=== PATIENT | female | born 1985 | race Caucasian/White ===

== ENCOUNTER 2020-07-20 10:43 | Emergency (ER) | payer OTHER, SELFPAY ==
[2020-07-20 11:06] VITALS: BP 126/80; PULSE 84; RESP 16; TEMP 36.7; O2SAT 99; BMI 33.0
--- NOTE | 2020-07-20 11:23 | CT_ITS ---
EXAMINATION: CT abdomen pelvis wo con CLINICAL INFORMATION: Reason for Exam abd pain, ?? Diverticulitis COMPARISON: No prior CT available for comparison. TECHNIQUE: Multidetector volumetric imaging was performed from the superior aspect of the liver through the pubic symphysis 100 mL of Omnipaque 300 injected Sagittal and coronal reformatted images were obtained on the technologist's workstation. This CT examination was performed using dose optimization techniques as appropriate, variously including the following: *Automated exposure control *Adjustment of mA and/or kV according to patient size (this includes techniques or standardized protocols for targeted exams where dose is matched to indication/reason for exam; i.e. extremities or head) *Use of iterative reconstruction technique DLP: 1715 mGy-cm FINDINGS: LOWER THORAX: Included lung bases are clear. HEPATOBILIARY: No focal hepatic lesions. No biliary ductal dilatation. GALLBLADDER: Gallbladder unremarkable. SPLEEN: Spleen is normal in size. PANCREAS: No focal mass or ductal dilatation. STOMACH AND GASTROINTESTINAL TRACT: Stomach is grossly unremarkable. There is no bowel distention or thickening. Appendix is nondilated, there is a small appendicolith, there is air within the appendix lumen, no CT evidence of appendicitis. ADRENALS: No adrenal nodules. KIDNEYS/URETERS: There are bilateral tiny nonobstructing kidney stones 3 on the right forearm the left ranging in size from 1 mm to 3 mm. There is no hydronephrosis. Perinephric fat are clear. URINARY BLADDER: Partially decompressed. PELVIC VISCERA: There is a right sided adnexal cyst measure up to 2.5 cm most likely of right ovarian origin. PERITONEUM: No free air or fluid. LYMPH NODES: No lymphadenopathy. VASCULAR:Abdominal aorta normal in size, no aneurysm found. BONES, ABDOMINAL WALL AND SOFT TISSUES: Age-appropriate changes of the spine and skeletal system, no destructive osteolytic or osteosclerotic bone lesion found sclerotic density in the left femoral head probably bone islands. Mild degenerative changes of SI joints. CT/CT abdomen pelvis wo con IMPRESSION: 1. No CT evidence of appendicitis or diverticulitis. 2. There are bilateral multiple tiny nonobstructing kidney stones. No evidence of renal obstruction or hydronephrosis. 3. There is 2.4 cm cystic structure in the right adnexa most likely of right ovarian origin. This can be further investigated with pelvic ultrasound if clinically indicated. 4. No CT evidence of bowel obstruction, no free air or fluid, no adenopathy.
--- NOTE | 2020-07-20 11:24 | ED.ABDPAIN ---
HPI - Abdominal Pain General Chief Complaint: Abdominal Pain Stated Complaint: ABD PAIN Time Seen by Provider: 07/20/20 11:23 Source: patient Mode of arrival: ambulatory Limitations: no limitations History of Present Illness HPI narrative: This is a 34-year-old female otherwise healthy presented with 1 week of left-sided abdominal pain, nausea, vomiting, and diarrhea with occasional blood streaks in the stool. Patient stated that abdominal pain started a week ago, described it as cramps, localized to her left side of her abdomen, no radiation, pain is not worsening by anything including foods, patient is also not improved by any thing. Pain is associated with nausea, vomiting, and diarrhea with occasional blood streaks in the stool. Patient was seen at an urgent care earlier this week and diagnosis of diverticulitis was presumed and patient was started on amoxicillin for 10 days patient feeling slight improvement with the antibiotic. Related Data Home Medications Medication Instructions Recorded Confirmed No Known Home Meds 07/14/20 07/14/20 Previous Rx's Medication Instructions Recorded amoxicillin 875 mg-potassium 1 tab PO BID #20 tab 07/14/20 clavulanate 125 mg tablet ondansetron HCl 8 mg tablet 8 mg PO Q8H PRN #30 tab 07/14/20 oxycodone-acetaminophen 10 mg-325 1 tab PO Q6H PRN #10 tab 07/14/20 mg tablet Allergies Allergy/AdvReac Type Severity Reaction Status Date / Time No Known Allergies Allergy Unverified 05/22/20 19:11 [No Known Allergies*] Review of Systems Review of Systems All other systems are reviewed and are negative Constitutional: Reports as per HPI and Reports no additional constitutional complaints Eyes: Reports as per HPI and Reports no additional eye complaints Reports system reviewed and no additional complaints, except as documented Cardiovascular: Reports as per HPI and Reports no additional cardiovascular complaints Respiratory: Reports as per HPI and Reports no additional respiratory complaints Gastrointestinal: Reports as per HPI and Reports no additional gastrointestinal complaints Genitourinary: Reports no additional female genitourinary complaints Musculoskeletal: Reports no additional musculoskeletal complaints Skin/Breast: Reports system reviewed and no additional complaints, except as docu Psychiatric: Reports no additional psychiatric complaints Endocrine: Reports no additional endocrine complaints Hematologic/Lymphatic: Reports no additional hematologic/lymphatic complaints Allergic/Immunologic: Reports no additional allergic/immunologic complaints Reports system reviewed and no additional complaints, except as documented and Reports Abnormal speech present Physical Exam Vital Signs: Vital Signs: Last Vital Signs Temp 98.0 F 07/20/20 11:06 Pulse 84 07/20/20 11:06 Resp 16 07/20/20 13:45 BP 126/80 07/20/20 11:06 Pulse Ox 99 07/20/20 11:06 Body Mass Index 33.0 Vital signs have been reviewed as normal and appeared to be correct. Blood pressure normal. Heart rate normal. Respiration rate normal. Temperature normal. Oxygen saturation normal. Appearance: Alert. Oriented X3. No acute distress. Head: Normal external exam. Normocephalic. Atraumatic. No Swain signs noted. No raccoon eyes noted Eyes: PERRLA. EOMI. Conjunctiva and sclera normal. Eyelids normal. ENT: EAC normal. TM's Normal. Pharynx normal. Uvula midline. Moist mucous membranes. No trismus noted. No drooling noted. No muffled voice noted. Neck: Normal inspection. Neck supple. FROM. No adenopathy. Thyroid Normal. No meningeal signs. No neck mass noted. CVS: Normal heart rate and rhythm. Heart sound normal. No murmurs noted. Pulses normal throughout. Respiratory: No respiratory distress. Painless inspiration. Breath sounds normal. No wheezes/rales/rhonchi noted. Chest nontender. No accessory muscle usage noted or decreased air movement noted. Abdomen: Left abdominal tenderness, no rebound tenderness, no guarding, Bowel sounds normal in all 4 quadrants. No distention noted. No organomegaly noted. No visible injury noted. Back: No CVA tenderness. Full range of motion noted. Skin: Skin warm and dry. Normal skin color. Normal skin turgor. No rashes/lesions/lacerations noted. Extremities: No lower extremity edema. Extremities exhibit normal range of motion. Extremities nontender. Neuro: Oriented X 3. No motor deficit. No sensory deficit. Reflexes normal. MDM - Abdominal Pain MDM Narrative Medical decision making narrative: Assessment and plan. 34-year-old female presented with few days of left-sided abdominal pain, patient had previous evaluation at the urgent care and prescribed amoxicillin for presumed diverticulitis, patient also been having irregular menstrual period, patient appear comfortable with no apparent distress in the emergency department, patient had a CT of the abdomen pelvis which showed no evidence of acute diverticulitis or any other pathology intra-abdominally, patient had a right ovarian adnexal mass. 1. As recommended to the patient she has a normal white count and normal CT scan to discontinue amoxicillin that was prescribed for presumed diverticulitis. 2. To get a referral from PCP for a GI follow-up if the pain persist. 3. Follow-up with OBGYN for irregular. It is and right adnexal mass. It Lab Data Attestation: I reviewed the patient's lab results. Result diagrams: 07/20/20 11:59 07/20/20 11:59 Labs: Lab Results 07/20/20 07/20/20 07/20/20 Range/Units 11:59 11:59 11:59 WBC 9.5 (4.8-10.8) X10*3/uL RBC 4.62 (4.20-5.50) X10*6/uL Hgb 13.5 (12.0-16.0) g/dl Hct 42.4 (37-47) % MCV 91.8 (80-98) fL MCH 29.2 (27.0-33.0) pg MCHC 31.8 (31.0-35.0) g/dl RDW 11.8 (11.0-16.0) % Plt Count 224 (160-400) X10*3/uL MPV 10.1 (9.4-12.3) fL Immature Gran % (Auto) 0.2 (0.0-0.4) % Neut % (Auto) 65.5 (45-73) % Lymph % (Auto) 22.0 (20-40) % [place] % (Auto) 6.3 (2-11) % Eos % (Auto) 5.4 H (0-4) % Baso % (Auto) 0.6 (0-2) % Lymph # (Auto) 2.1 (1.2-4.9) X10*3/uL [place] # (Auto) 0.6 (0.1-1.2) X10*3/uL Eos # (Auto) 0.5 H (0.0-0.4) X10*3/uL Baso # (Auto) 0.1 (0.0-0.2) X10*3/uL Abs Immat Gran (auto) 0.02 (0.00-0.03) X10*3/uL Absolute Neuts (auto) 6.2 (2.0-8.3) X10*3/uL Absolute Nucleated RBC 0.000 (0.0-0.012) X10*3/uL Nucleated RBC % (auto) 0.0 (0.0-0.2) /100WBC Sodium 139 (135-145) mmol/L Potassium 4.7 (3.3-5.1) mmol/l Chloride 103 (96-108) mmol/L Carbon Dioxide 28 (22-29) mmol/L Anion Gap 13 (12-20) BUN 13 (9-16) mg/dL Creatinine 0.82 (0.5-1.4) mg/dL Estim Creat Clear Calc 93.9 Estimated GFR > 60 Random Glucose 90 (60-115) mg/dL Calcium 9.2 (8.4-10.2) mg/dL Total Bilirubin 0.8 (0.0-1.0) mg/dL Direct Bilirubin 0.2 (0.0-0.5) mg/dL AST 26 (5-31) U/L ALT 16 (0-31) U/L Alkaline Phosphatase 80 (39-117) U/L Total Protein 7.9 (6.5-8.0) g/dL Albumin 4.2 (3.5-5.0) g/dL Lipase 33 (8-78) U/L Urine Color YELLOW Urine Appearance CLEAR Urine pH 6.0 (5.0-8.0) Ur Specific [place] 1.025 (1.005-1.025) Urine Protein NEG (NEG-TRACE) MG/DL Urine Glucose (UA) NEG (NEG) MG/DL Urine Ketones NEG (NEG) MG/DL Urine Blood 3+ H (NEG) Urine Nitrite NEG (NEG) Ur Leukocyte Esterase NEG (NEG) Urine RBC 10-14 H (0) /HPF Urine WBC 0 (0-4) /HPF Ur Squamous Epith Cells 2+ /LPF Urine Bacteria NONE /LPF Urine Test NEGATIVE (NEGATIVE) Imaging Data CT scan - abdomen: Radiologist's impression: . No CT evidence of appendicitis or diverticulitis. 2. There are bilateral multiple tiny nonobstructing kidney stones. No evidence of renal obstruction or hydronephrosis. 3. There is 2.4 cm cystic structure in the right adnexa most likely of right ovarian origin. This can be further investigated with pelvic ultrasound if clinically indicated. 4. No CT evidence of bowel obstruction, no free air or fluid, no adenopathy. Discharge Plan Discharge Clinical Impression: Adnexal mass Abdominal pain Qualifiers: Abdominal location: left lower quadrant Qualified Code(s): R10.32 - Left lower quadrant pain Patient Disposition: Home, Self-Care Instructions: Abdominal Pain (ED) Prescriptions: No Action No Known Home Meds RF: 0 amoxicillin-pot clavulanate [Augmentin] 875-125 mg tablet 1 tab PO BID Qty: 20 RF: 0 ondansetron HCl 8 mg tablet 8 mg PO Q8H PRN (Reason: nausea and vomiting) Qty: 30 RF: 1 oxycodone-acetaminophen [Percocet] 10-325 mg tablet 1 tab PO Q6H PRN (Reason: pain) Qty: 10 RF: 0 Referrals: Physician,Outside [Primary Care Provider] - 2 days (Need to follow-up with your OBGYN, and get a referral to see outpatient housing coordinator.) [facility] Social History Social History Alcohol intake: never Smoked in Last 30 Days: No Use of substances other than those prescribed or required for medical reasons: No Advance Directives: No Advance Directives Information Provided: Yes
[2020-07-20 12:07] LABS: Basophils Absolute Auto 0.1 X10*3/uL (0.0-0.2); Basophils Percent Auto 0.6 % (0-2); Eosinophils Absolute Auto 0.5 X10*3/uL (0.0-0.4); Eosinophils Percent Auto 5.4 % (0-4); Hematocrit 42.4 % (37-47); Hemoglobin 13.5 g/dl (12.0-16.0); Imm Gran Abs Auto 0.02 X10*3/uL (0.00-0.03); Imm Gran Pct Auto 0.2 % (0.0-0.4); Lymphocytes Absolute Auto 2.1 X10*3/uL (1.2-4.9); MANUAL DIFF FLAG NO; Mean Corpuscular HGB Conc 31.8 g/dl (31.0-35.0); Mean Corpuscular Hemoglobin 29.2 pg (27.0-33.0); Mean Corpuscular Volume 91.8 fL (80-98); Mean Platelet Volume 10.1 fL (9.4-12.3); Monocytes Absolute Auto 0.6 X10*3/uL (0.1-1.2); Monocytes Percent Auto 6.3 % (2-11); Neutrophils Absolute Auto 6.2 X10*3/uL (2.0-8.3); Neutrophils Percent Auto 65.5 % (45-73); Platelet Count 224 X10*3/uL (160-400); Red Blood Count 4.62 X10*6/uL (4.20-5.50); Red Cell Distribution Width 11.8 % (11.0-16.0); White Blood Count 9.5 X10*3/uL (4.8-10.8)
[2020-07-20 12:10] LABS: Glucose Urine UA NEG (NEG); Leukocyte Esterase Urine NEG (NEG); Nitrite Urine NEG (NEG); Specific Gravity - Urine 1.025 (1.005-1.025); Urine Blood 3+ (NEG); Urine Ketones NEG (NEG); Urine Protein NEG (NEG-TRACE)
[2020-07-20 12:14] LABS: Appearance Urine CLEAR; Color Urine YELLOW; UPreg QC Valid YES; Urine Pregnancy NEGATIVE (NEGATIVE)
[2020-07-20] MEDS: 0.9 % Sodium Chloride 500 ML 1000 ML IV (12:17)
[2020-07-20] MEDS: Ketorolac Tromethamine 15 MG/ML VIAL IV (12:18)
[2020-07-20 12:33] LABS: WBC Urine 0 /HPF (0-4)
[2020-07-20 12:34] LABS: Squamous Epithelial Cell Urine 2+ /LPF
[2020-07-20 12:42] LABS: Alanine Aminotransferase 16 U/L (0-31); Albumin Level 4.2 g/dL (3.5-5.0); Alkaline Phosphatase 80 U/L (39-117); Anion Gap 13 (12-20); Aspartate Amino Transferase 26 U/L (5-31); Bilirubin Direct 0.2 mg/dL (0.0-0.5); Bilirubin Total 0.8 mg/dL (0.0-1.0); Blood Urea Nitrogen 13 mg/dL (9-16); Calcium 9.2 mg/dL (8.4-10.2); Carbon Dioxide 28 mmol/L (22-29); Chloride 103 mmol/L (96-108); Creatinine Clr Calc Pharmacy 93.9; Estimated Glomerular Filt Rate > 60; Glucose Random 90 mg/dL (60-115); Lipase 33 U/L (8-78); Potassium 4.7 mmol/l (3.3-5.1); Sodium 139 mmol/L (135-145); Total Protein 7.9 g/dL (6.5-8.0)
[2020-07-20 13:45] VITALS: RESP 16
== END 2020-07-20 14:31 | disposition home or self-care (01) ==
PROVIDERS: Emergency Provider Emergency Medicine
DX: R10.32 Left lower quadrant pain (principal); Z79.899 Other long term (current) drug therapy
CPT/HCPCS: 36415; 74176; 80048; 80076; 81001; 81025; 83690; 85025; 96374; 99284; J1885

== ENCOUNTER 2021-03-10 12:04 | Emergency (ER) | payer OTHER, SELFPAY ==
--- NOTE | ~2021-03-10 | XR_ITS ---
EXAMINATION: XR CHEST CLINICAL INFORMATION: Cough COMPARISON: None TECHNIQUE: 2 views of the chest were obtained. FINDINGS: No significant abnormality is noted involving the heart, lungs, mediastinum, bony thorax or soft tissues. XR/XR chest 2V IMPRESSION: Unremarkable examination.
[2021-03-10 13:19] VITALS: BP 123/80; PULSE 79; RESP 19; TEMP 36.6; O2SAT 99; BMI 32.3
--- NOTE | 2021-03-10 16:36 | ED_ITS ---
HPI - URI/Sore Throat General Chief Complaint: Upper Respiratory Symptoms Stated Complaint: cough, sob Time Seen by Provider: 03/10/21 16:36 Source: patient Mode of arrival: ambulatory Limitations: no limitations History of Present Illness HPI Narrative: 35 y/o female with history of diverticulitis, asthma, hx COVID-19 two months ago who presents to the ED from home c/o cough and fever for the last 2 days. She reports SOB and back pain as well. She has a productive cough of green phlegm. She has seasonal allergies and has been taking her Zyrtec and nasal spray. She has been using her nebulizer and inhalers for her asthma but still feels SOB at times. She has body aches and muscle pains. No known sick contacts. No chest pain. Tmax 100.1 at home. VS are normal on arrival and she appears well. MD elicited complaint: fever and cough Onset (ago): day(s) (2) Consistency: intermittent Severity: moderate Description of mucous: green Able to tolerate fluids by mouth: Yes Exacerbating factors: nothing Relieving factors: OTC cold medicine, cough suppressant and rest Associated symptoms: fever, myalgias, headache, rhinorrhea, nasal congestion, sore throat, cough, shortness of breath and nausea Treatments prior to arrival: none Related Data Previous Rx's Medication Instructions Recorded amoxicillin 875 mg-potassium 1 tab PO BID #20 tab 07/14/20 clavulanate 125 mg tablet ondansetron HCl 8 mg tablet 8 mg PO Q8H PRN #30 tab 07/14/20 oxycodone-acetaminophen 10 mg-325 1 tab PO Q6H PRN #10 tab 07/14/20 mg tablet amoxicillin-pot clavulanate 1 tab PO BID #14 tab 03/10/21 [Augmentin] benzonatate [Tessalon Perles] 100 mg PO TID PRN #14 cap 03/10/21 ondansetron 4 mg PO Q8H PRN #7 tab 03/10/21 prednisone 40 mg PO DAILY #10 tab 03/10/21 Allergies Allergy/AdvReac Type Severity Reaction Status Date / Time No Known Allergies Allergy Unverified 05/22/20 19:11 [No Known Allergies*] Review of Systems Review of Systems: Constitutional: + Fever, No Chills ENT/Mouth: + sore throat, + Rhinorrhea, No Swallowing Difficulty Eyes: No Eye Pain, No Swelling, No Redness Cardiovascular: No Chest Pain, + SOB, No Orthopnea, No Edema Respiratory: + Cough, + Sputum, No Wheezing, + dyspnea Gastrointestinal: + Nausea, No Vomiting, No Diarrhea, No abdominal Pain, No Hematochezia, No Melena Genitourinary: No Dysuria, No Urinary Frequency, No Hematuria Musculoskeletal: No joint pain, +Myalgias Skin: No Skin Lesions, No rash Neuro: + Weakness, No Numbness, No Dizziness, + Headache Psych: No Anxiety/Panic, No Depression Heme/Lymph: No Bruising, No Lymphadenopathy Endocrine: No Polyuria, No Polydipsia [facility] Past Medical History Attestation statement: The following information was validated with the patient. Medical History Asthma Lung granuloma Social History Social History Alcohol intake: never Patient Tobacco Use Status: Never used Tobacco Use of substances other than those prescribed or required for medical reasons: No Advance Directives: No Advance Directives Information Provided: No Patient : No Physical Exam Vital Signs: Vital Signs: Last Vital Signs Temp 98.3 F 03/10/21 16:39 Pulse 85 03/10/21 16:39 Resp 18 03/10/21 16:39 BP 116/81 03/10/21 16:39 Pulse Ox 100 03/10/21 16:39 Body Mass Index 32.3 Appearance: Alert. Oriented X3. No acute distress. Eyes: Pupils equal, round and reactive to light. ENT: Pharynx normal. Neck: Normal inspection. Neck supple. CVS: Normal heart rate and rhythm. Pulses normal. Respiratory: No respiratory distress. Breath sounds normal. Speaks in complete sentences Abdomen: Soft and nontender. +BS x4 Skin: Skin warm and dry. Normal skin color. Normal skin turgor. No rashes. Extremities: No lower extremity edema. Neuro: Oriented X 3. No motor deficit. No sensory deficit. Ambulatory Course Course Course Narrative: 35 y/o female with history of asthma, hx COVID-19 two months ago presenting with SOB, fever, and productive cough of green phlegm. Her VS are normal on arrival and her examination is benign. No wheezing or SOB. PERC negative. Most likely acute viral syndrome, but will get CXR to r/o PNA and basic lab workup. Reevaluation(s) Reevaluation #1: CXR is normal. No infiltrate. PO prednisone and Augmentin ordered for possible acute bronchitis. Reevaluation #2: Labs are unremarkable. SpO2 remains 100%. She is stable for discharge with treatment for bronchitis. Encouraged to f/u with PCP or return to ER if symptoms worsen. MDM - URI/Sore Throat Lab Data Result diagrams: 03/10/21 16:59 03/10/21 16:58 Labs: Lab Results 03/10/21 03/10/21 03/10/21 Range/Units 16:58 16:59 16:59 WBC 9.5 (4.8-10.8) X10*3/uL RBC 4.78 (4.20-5.50) X10*6/uL Hgb 14.0 (12.0-16.0) g/dl Hct 42.5 (37-47) % MCV 88.9 (80-98) fL MCH 29.3 (27.0-33.0) pg MCHC 32.9 (31.0-35.0) g/dl RDW 12.0 (11.0-16.0) % Plt Count 255 (160-400) X10*3/uL MPV 10.2 (9.4-12.3) fL Immature Gran % (Auto) 0.2 (0.0-0.4) % Neut % (Auto) 72.2 (45-73) % Lymph % (Auto) 15.9 L (20-40) % [place] % (Auto) 7.4 (2-11) % Eos % (Auto) 3.8 (0-4) % Baso % (Auto) 0.5 (0-2) % Lymph # (Auto) 1.5 (1.2-4.9) X10*3/uL [place] # (Auto) 0.7 (0.1-1.2) X10*3/uL Eos # (Auto) 0.4 (0.0-0.4) X10*3/uL Baso # (Auto) 0.1 (0.0-0.2) X10*3/uL Abs Immat Gran (auto) 0.02 (0.00-0.03) X10*3/uL Absolute Neuts (auto) 6.9 (2.0-8.3) X10*3/uL Absolute Nucleated RBC 0.000 (0.0-0.012) X10*3/uL Nucleated RBC % (auto) 0.0 (0.0-0.2) /100WBC Sodium 141 (135-145) mmol/L Potassium 4.1 (3.3-5.1) mmol/L Chloride 107 (96-108) mmol/L Carbon Dioxide 23 (22-29) mmol/L Anion Gap 15 (12-20) BUN 10 (9-16) mg/dL Creatinine 0.79 (0.5-1.4) mg/dL Estim Creat Clear Calc 95.5 Estimated GFR > 60 Random Glucose 97 (60-115) mg/dL Calcium 10.3 H D (8.4-10.2) mg/dL COVID-19 (JOSE) Negative (Negative) COVID-19 Clin Com See Note Critical Care Time Critical Care Time Critical Care Time: No Discharge Plan Discharge Clinical Impression: Bronchitis Patient Disposition: Home, Self-Care Instructions: Acute Bronchitis (ED) Additional Instructions: Your chest x-ray today was normal. Your lab workup was unremarkable. Your lungs are clear and vital signs are normal. Take the prescribed medications as directed. Continue using your nebulizer and inhalers as prescribed. Take over the counter cold/flu medications as needed for your symptoms. Follow up with your doctor in 2 days. If you develop new or worsening symptoms call 911 or come back to the ER for fur ther evaluation. Prescriptions: New amoxicillin-pot clavulanate [Augmentin] 875-125 mg tablet 1 tab PO BID Qty: 14 RF: 0 ondansetron 4 mg tablet,disintegrating 4 mg PO Q8H PRN (Reason: nausea and vomiting) Qty: 7 RF: 0 prednisone 20 mg tablet 40 mg PO DAILY Qty: 10 RF: 0 benzonatate [Tessalon Perles] 100 mg capsule 100 mg PO TID PRN (Reason: cough) Qty: 14 RF: 0 No Action amoxicillin-pot clavulanate [Augmentin] 875-125 mg tablet 1 tab PO BID Qty: 20 RF: 0 ondansetron HCl 8 mg tablet 8 mg PO Q8H PRN (Reason: nausea and vomiting) Qty: 30 RF: 1 oxycodone-acetaminophen [Percocet] 10-325 mg tablet 1 tab PO Q6H PRN (Reason: pain) Qty: 10 RF: 0 Stand Alone Forms: Work/School Release Interventions: ED Discharge Assessment Last Done: 03/10/21 17:44
[2021-03-10 16:39] VITALS: BP 116/81; PULSE 85; RESP 18; TEMP 36.8; O2SAT 100
[2021-03-10 17:04] LABS: MANUAL DIFF FLAG NO
[2021-03-10 17:09] LABS: Basophils Absolute Auto 0.1 X10*3/uL (0.0-0.2); Basophils Percent Auto 0.5 % (0-2); Eosinophils Absolute Auto 0.4 X10*3/uL (0.0-0.4); Eosinophils Percent Auto 3.8 % (0-4); Hematocrit 42.5 % (37-47); Imm Gran Abs Auto 0.02 X10*3/uL (0.00-0.03); Imm Gran Pct Auto 0.2 % (0.0-0.4); Lymphocytes Absolute Auto 1.5 X10*3/uL (1.2-4.9); Lymphocytes Percent Auto 15.9 % (20-40); Mean Corpuscular HGB Conc 32.9 g/dl (31.0-35.0); Mean Corpuscular Hemoglobin 29.3 pg (27.0-33.0); Mean Corpuscular Volume 88.9 fL (80-98); Mean Platelet Volume 10.2 fL (9.4-12.3); Monocytes Absolute Auto 0.7 X10*3/uL (0.1-1.2); Monocytes Percent Auto 7.4 % (2-11); Neutrophils Absolute Auto 6.9 X10*3/uL (2.0-8.3); Neutrophils Percent Auto 72.2 % (45-73); Platelet Count 255 X10*3/uL (160-400); Red Blood Count 4.78 X10*6/uL (4.20-5.50); White Blood Count 9.5 X10*3/uL (4.8-10.8)
[2021-03-10] MEDS: predniSONE 20 MG TABLET 40 MG PO (17:12)
[2021-03-10] MEDS: Amoxicillin/Potassium Clav 875 MG TABLET PO (17:12)
[2021-03-10 17:39] LABS: COVID-19 Test Negative (Negative); IDNOW Serial# 9DD0AD1C
[2021-03-10 17:39] LABS: Anion Gap 15 (12-20); Blood Urea Nitrogen 10 mg/dL (9-16); Calcium 10.3 mg/dL (8.4-10.2); Carbon Dioxide 23 mmol/L (22-29); Chloride 107 mmol/L (96-108); Creatinine Clr Calc Pharmacy 95.5; Estimated Glomerular Filt Rate > 60; Glucose Random 97 mg/dL (60-115); Potassium 4.1 mmol/L (3.3-5.1); Sodium 141 mmol/L (135-145)
== END 2021-03-10 17:51 | disposition home or self-care (01) ==
PROVIDERS: Physician Assistant; Emergency Provider Emergency Medicine Emergency Medical Services
DX: J40 Bronchitis, not specified as acute or chronic (principal); Z20.822 Contact with and (suspected) exposure to COVID-19
CPT/HCPCS: 36415; 71046; 80048; 85025; 87635; 99283; 99284

== ENCOUNTER 2021-04-23 13:01 | Emergency (ER) | payer OTHER, SELFPAY ==
--- NOTE | ~2021-04-23 | XR_ITS ---
EXAMINATION: XR CHEST CLINICAL INFORMATION: Chest pain and shortness of breath. COMPARISON: Chest radiograph dated 03/10/2021. TECHNIQUE: Frontal view of the chest was obtained. FINDINGS: No significant abnormality is noted involving the heart, lungs, mediastinum, bony thorax or soft tissues. XR/XR chest 1V IMPRESSION: Unremarkable examination.
--- NOTE | ~2021-04-23 | CT_ITS ---
EXAMINATION: CTA CHEST PE STUDY CLINICAL INFORMATION: sob, chest pressure when leaning forward COMPARISON: No pertinent prior studies are available for comparison. TECHNIQUE: Prior to contrast administration, noncontrast localization images were obtained. After the administration of 70 mL of Omnipaque 350 IV contrast, contiguous thin slice helical images were obtained through the thorax. Reformatted MIP images in the coronal and sagittal planes were obtained at the acquisition workstation. This CT examination was performed using dose optimization techniques as appropriate, variously including the following: *Automated exposure control *Adjustment of mA and/or kV according to patient size (this includes techniques or standardized protocols for targeted exams where dose is matched to indication/reason for exam; i.e. extremities or head) *Use of iterative reconstruction technique DLP: 269 mGy-cm. FINDINGS: The bolus timing on this study was acceptable for visualization of the pulmonary arterial tree. There are no intraluminal pulmonary arterial filling defects present to suggest pulmonary embolism. The lungs are clear. No abnormal pulmonary nodules or masses are appreciated. No significant hilar or mediastinal adenopathy. There is no evidence of pleural effusion or pneumothorax. The heart is normal in size. No evidence of ventricular septal bowing or right heart strain. Great vessels are normal. Otherwise the mediastinum is unremarkable. There is no pericardial effusion or pericardial thickening. Limited evaluation of the upper abdominal viscera is unremarkable. CT/CT angio chest PE protocol IMPRESSION: Unremarkable examination. VTE: Negative
[2021-04-23 13:04] VITALS: BP 125/74; PULSE 78; RESP 16; TEMP 36.8; O2SAT 99; BMI 32.6
--- NOTE | 2021-04-23 13:09 | ECG_ITS ---
Test Reason : CHEST PAIN Blood Pressure : / mmHG Vent. Rate : 077 BPM Atrial Rate : 077 BPM P-R Int : 132 ms QRS Dur : 068 ms QT Int : 378 ms P-R-T Axes : 013 001 027 degrees QTc Int : 427 ms Normal sinus rhythm Normal ECG No previous ECGs available Referred By: Generic ED Physician Electronically Signed By:PHILLIP VERMA
[2021-04-23 13:51] LABS: MANUAL DIFF FLAG NO
[2021-04-23 13:53] LABS: Basophils Absolute Auto 0.1 X10*3/uL (0.0-0.2); Basophils Percent Auto 0.6 % (0-2); Eosinophils Absolute Auto 0.4 X10*3/uL (0.0-0.4); Eosinophils Percent Auto 4.2 % (0-4); Hematocrit 39.7 % (37-47); Hemoglobin 13.2 g/dl (12.0-16.0); Imm Gran Abs Auto 0.02 X10*3/uL (0.00-0.03); Imm Gran Pct Auto 0.2 % (0.0-0.4); Lymphocytes Percent Auto 22.3 % (20-40); Mean Corpuscular HGB Conc 33.2 g/dl (31.0-35.0); Mean Corpuscular Hemoglobin 29.6 pg (27.0-33.0); Mean Platelet Volume 9.9 fL (9.4-12.3); Monocytes Absolute Auto 0.5 X10*3/uL (0.1-1.2); Monocytes Percent Auto 5.8 % (2-11); Neutrophils Percent Auto 66.9 % (45-73); Platelet Count 238 X10*3/uL (160-400); Red Blood Count 4.46 X10*6/uL (4.20-5.50); Red Cell Distribution Width 11.9 % (11.0-16.0)
[2021-04-23 14:23] LABS: Anion Gap 13 (12-20); Blood Urea Nitrogen 12 mg/dL (9-16); Calcium 9.6 mg/dL (8.4-10.2); Carbon Dioxide 25 mmol/L (22-29); Chloride 105 mmol/L (96-108); Estimated Glomerular Filt Rate > 60; Glucose Random 95 mg/dL (60-115); Sodium 139 mmol/L (135-145)
[2021-04-23 14:25] LABS: Troponin-I High Sensitivity < 3.5 ng/L (<3.5-17.0)
[2021-04-23 14:43] VITALS: BP 121/76; PULSE 86; RESP 12; TEMP 36.6; O2SAT 100
--- NOTE | 2021-04-23 16:12 | ED_ITS ---
HPI - Chest Pain General Chief Complaint: Chest Pain <Tayla Andre NP - Last Filed: 04/23/21 23:05> Stated Complaint: chest pain, SOB <Tayla Andre NP - Last Filed: 04/23/21 23:05> Time Seen by Provider: 04/23/21 16:38 <Tayla Andre NP - Last Filed: 04/23/21 23:05> Source: patient <Tayla Andre NP - Last Filed: 04/23/21 23:05> Mode of arrival: ambulatory <Tayla Andre NP - Last Filed: 04/23/21 23:05> Limitations: no limitations <Tayla Andre NP - Last Filed: 04/23/21 23:05> History of Present Illness HPI narrative: 35-year-old female presents with left-sided chest pressure and pain, palpitations, accompanied with nausea and shortness of breath. States that the pain gets worse when she leans forward, feels like the palpitations get heavier and stronger. She has not experienced pain like this in the past. <Tayla Andre NP - Last Filed: 04/23/21 23:05> MD complaint: chest pain and chest heaviness <Tayla Andre NP - Last Filed: 04/23/21 23:05> Onset (ago): day(s) (Three) <Tayla Andre NP - Last Filed: 04/23/21 23:05> Timing of current episode: episodic <Tayla Andre NP - Last Filed: 04/23/21 23:05> Prior episodes: No <Tayla Andre NP - Last Filed: 04/23/21 23:05> Onset: during rest and during exertion <Tayla Andre NP - Last Filed: 04/23/21 23:05> Pain location: left chest <Tayla Andre NP - Last Filed: 04/23/21 23:05> Pain radiation: none <Tayla Andre NP - Last Filed: 04/23/21 23:05> Severity: moderate <Tayla Andre NP - Last Filed: 04/23/21 23:05> Quality: heaviness <Tayla Andre NP - Last Filed: 04/23/21 23:05> Exacerbating factors: exertion and movement <Tayla Andre NP - Last Filed: 04/23/21 23:05> Associated symptoms: nausea, dyspnea and palpitations <Tayla Andre NP - Last Filed: 04/23/21 23:05> Treatment prior to arrival: none <Tayla Andre NP - Last Filed: 04/23/21 23:05> Risk Factors Coronary artery disease risk factors: none <Tayla Andre NP - Last Filed: 04/23/21 23:05> Thoracic aortic dissection risk factors: none <Tayla Andre NP - Last Filed: 04/23/21 23:05> Related Data On Oral Contraceptives: No <Tayla Andre NP - Last Filed: 04/23/21 23:05> Home Medications: Previous Rx's Medication Instructions Recorded amoxicillin 875 mg-potassium 1 tab PO BID #20 tab 07/14/20 clavulanate 125 mg tablet (Augmentin) ondansetron HCl 8 mg tablet 8 mg PO Q8H PRN #30 tab 07/14/20 oxycodone-acetaminophen 10 mg-325 1 tab PO Q6H PRN #10 tab 07/14/20 mg tablet (Percocet) amoxicillin 875 mg-potassium 1 tab PO BID #14 tab 03/10/21 clavulanate 125 mg tablet (Augmentin) benzonatate 100 mg capsule 100 mg PO TID PRN #14 cap 03/10/21 (Tessalon Francisco) ondansetron 4 mg disintegrating 4 mg PO Q8H PRN #7 tab 03/10/21 tablet prednisone 20 mg tablet 40 mg PO DAILY #10 tab 03/10/21 <Tayla Andre NP - Last Filed: 04/23/21 23:05> Allergies/Adverse Reactions: Allergies Allergy/AdvReac Type Severity Reaction Status Date / Time No Known Allergies Allergy Verified 04/23/21 13:09 [No Known Allergies*] <Tayla Andre NP - Last Filed: 04/23/21 23:05> Review of Systems Review of Systems: Constitutional: No Weight loss, No Fever, No Chills, No Night Sweats, No Fatigue, No Malaise ENT/Mouth: No Hearing loss, No Ear Pain, No Nasal Congestion, No Sinus Pain, No Hoarseness, No sore throat, No Rhinorrhea, No Swallowing Difficulty Eyes: No Eye Pain, No Swelling, No Redness, No Foreign Body, No Discharge, No Vision Changes Cardiovascular: Positive Chest Pain, positive s SOB, no Dyspnea on Exertion, No Orthopnea, No Edema, positive Palpitations Respiratory: No Cough, No Sputum, No Wheezing, No Smoke Exposure, No Dyspnea Gastrointestinal: Positive Nausea, No Vomiting, No Diarrhea, No abdominal Pain, No Hematochezia, No Melena Genitourinary: No irregular bleeding, No Dysuria, No Urinary Frequency, No Hematuria, No Urinary Incontinence, No Urgency, No Flank Pain, No Urinary Flow Changes, No Hesitancy Musculoskeletal: No joint pain, No Myalgias, No Joint Swelling Skin: No Skin Lesions, No rash Neuro: No Weakness, No Numbness, No Paresthesias, No Loss of Consciousness, No Dizziness, No Headache Psych: No Anxiety/Panic, No Depression, No SI/HI/AH/VH Heme/Lymph: No Bruising, No Bleeding,No Lymphadenopathy Endocrine: No Polyuria, No Polydipsia, No Temperature Intolerance <Tayla Andre NP - Last Filed: 04/23/21 23:05> Yes all other systems are reviewed and are negative <Tayla Andre NP - Last Filed: 04/23/21 23:05> [facility] Past Medical History Attestation statement: The following information was validated with the patient. <Tayla Andre NP - Last Filed: 04/23/21 23:05> Source: old records reviewed <Tayla Andre NP - Last Filed: 04/23/21 23:05> Medical History: Medical History (Updated 04/23/21 @ 21:08 by Tayla Andre NP) Asthma H/O bronchitis Lung granuloma <Tayla Andre NP - Last Filed: 04/23/21 23:05> Social History Social History: Social History Alcohol intake: never Patient Tobacco Use Status: Never used Tobacco Use of substances other than those prescribed or required for medical reasons: No Advance Directives: Yes Advance Directives Information Provided: Yes Advance Directives on File: No <Tayla OMAR Andre - Last Filed: 04/23/21 23:05> Physical Exam Vital Signs: Vital Signs: Last Vital Signs Temp 97.9 F 04/23/21 14:43 Pulse 65 04/23/21 21:26 Resp 18 04/23/21 21:26 BP 111/69 04/23/21 21:26 Pulse Ox 97 04/23/21 21:26 Body Mass Index 32.6 <Tayla Andre NP - Last Filed: 04/23/21 23:05> Vital Signs: Last Vital Signs Temp 97.9 F 04/23/21 14:43 Pulse 65 04/23/21 21:26 Resp 18 04/23/21 21:26 BP 111/69 04/23/21 21:26 Pulse Ox 97 04/23/21 21:26 Body Mass Index 32.6 <Daryl Bowling MD - Last Filed: 04/23/21 16:39> Appearance: Alert. Oriented X3. No acute distress. Head: Normal external exam. Normocephalic. Atraumatic. No Swain signs noted. No raccoon eyes noted Eyes: PERRLA. EOMI. Conjunctiva and sclera normal. Eyelids normal. ENT: TM's Normal. Pharynx normal. Uvula midline. Moist mucous membranes. No trismus noted. No drooling noted. No muffled voice noted. Neck: Normal inspection. Neck supple. No adenopathy. Thyroid Normal. No meningeal signs. No neck mass noted. CVS: Normal heart rate and rhythm. Heart sound normal. No murmurs noted. Pulses equal to all extremities. Respiratory: No respiratory distress. Painless inspiration. Breath sounds normal. No wheezes/rales/rhonchi noted. Chest nontender. No accessory muscle usage noted or decreased air movement noted. Abdomen: Soft and nontender. Bowel sounds normal in all 4 quadrants. No distention noted. No organomegaly noted. No visible injury noted. Back: No CVA tenderness. Full range of motion noted. Skin: Skin warm and dry. Normal skin color. Normal skin turgor. No rashes/lesions/lacerations noted. Extremities: No lower extremity edema. Extremities exhibit normal range of motion. Extremities nontender. Neuro: cranial nerves 2-12 intact, no focal neural deficits, strength 5/5 to all extremities, No motor deficit. No sensory deficit. <Tayla Andre NP - Last Filed: 04/23/21 23:05> Course Course Course Narrative: 35-year-old female presents with chest pain and pressure, palpitations, shortness of breath and nausea. Pain is worse when she leans forward, palpitations also feels stronger and heavier when leaning forward. Her 2 sisters were recently diagnosed with pericarditis. Lab workup was initiated while patient was in the waiting room all of which is negative. Will order CT scan of chest. CT scan of chest is negative. Most likely musculoskeletal or costochondritis, highly unlikely to be ACS and PE. Patient verbalized understanding of and agrees to plan of care discharge home. <Tayla Andre NP - Last Filed: 04/23/21 23:05> Reevaluation(s) Reevaluation #1: I have discussed the case and management with the CLIF <Daryl Bowling MD - Last Filed: 04/23/21 16:39> Time: 16:39 <Daryl Bowling MD - Last Filed: 04/23/21 16:39> MDM - Chest Pain Differential Diagnosis Differential diagnosis: Likely fracture of rib, pneumothorax, unstable angina pectoris, atypical chest pain, st elevation myocardial infarction, costochondritis and chest pain <Tayla Andre NP - Last Filed: 04/23/21 23:05> Medical Records Data Attestation: I reviewed the patient's medical records. <Tayla Andre NP - Last Filed: 04/23/21 23:05> Lab Data Attestation: I reviewed the patient's lab results. <Tayla Andre NP - Last Filed: 04/23/21 23:05> Result diagrams: : 04/23/21 13:39 04/23/21 13:39 <Tayla Andre NP - Last Filed: 04/23/21 23:05> Labs: Lab Results 04/23/21 04/23/21 04/23/21 Range/Units 13:39 13:39 13:39 WBC 9.0 (4.8-10.8) X10*3/uL RBC 4.46 (4.20-5.50) X10*6/uL Hgb 13.2 (12.0-16.0) g/dl Hct 39.7 (37-47) % MCV 89.0 (80-98) fL MCH 29.6 (27.0-33.0) pg MCHC 33.2 (31.0-35.0) g/dl RDW 11.9 (11.0-16.0) % Plt Count 238 (160-400) X10*3/uL MPV 9.9 (9.4-12.3) fL Immature Gran % (Auto) 0.2 (0.0-0.4) % Neut % (Auto) 66.9 (45-73) % Lymph % (Auto) 22.3 (20-40) % [place] % (Auto) 5.8 (2-11) % Eos % (Auto) 4.2 H (0-4) % Baso % (Auto) 0.6 (0-2) % Lymph # (Auto) 2.0 (1.2-4.9) X10*3/uL [place] # (Auto) 0.5 (0.1-1.2) X10*3/uL Eos # (Auto) 0.4 (0.0-0.4) X10*3/uL Baso # (Auto) 0.1 (0.0-0.2) X10*3/uL Abs Immat Gran (auto) 0.02 (0.00-0.03) X10*3/uL Absolute Neuts (auto) 6.0 (2.0-8.3) X10*3/uL Absolute Nucleated RBC 0.000 (0.0-0.012) X10*3/uL Nucleated RBC % (auto) 0.0 (0.0-0.2) /100WBC Sodium 139 (135-145) mmol/L Potassium 4.0 (3.3-5.1) mmol/L Chloride 105 (96-108) mmol/L Carbon Dioxide 25 (22-29) mmol/L Anion Gap 13 (12-20) BUN 12 (9-16) mg/dL Creatinine 0.79 (0.5-1.4) mg/dL Estim Creat Clear Calc 96.0 Estimated GFR > 60 Random Glucose 95 (60-115) mg/dL Calcium 9.6 D (8.4-10.2) mg/dL Magnesium 2.0 (1.6-2.6) mg/dL Troponin I High Sens < 3.5 (<3.5-17.0) ng/L TSH (0.32-4.0) uIU/mL Urine Color Urine Appearance Urine pH (5.0-8.0) Ur Specific [place] (1.005-1.025) Urine Protein (NEG-TRACE) MG/DL Urine Glucose (UA) (NEG) MG/DL Urine Ketones (NEG) MG/DL Urine Blood (NEG) Urine Nitrite (NEG) Ur Leukocyte Esterase (NEG) Urine Test (NEGATIVE) 04/23/21 04/23/21 04/23/21 Range/Units 17:21 17:34 17:34 WBC (4.8-10.8) X10*3/uL RBC (4.20-5.50) X10*6/uL Hgb (12.0-16.0) g/dl Hct (37-47) % MCV (80-98) fL MCH (27.0-33.0) pg MCHC (31.0-35.0) g/dl RDW (11.0-16.0) % Plt Count (160-400) X10*3/uL MPV (9.4-12.3) fL Immature Gran % (Auto) (0.0-0.4) % Neut % (Auto) (45-73) % Lymph % (Auto) (20-40) % [place] % (Auto) (2-11) % Eos % (Auto) (0-4) % Baso % (Auto) (0-2) % Lymph # (Auto) (1.2-4.9) X10*3/uL [place] # (Auto) (0.1-1.2) X10*3/uL Eos # (Auto) (0.0-0.4) X10*3/uL Baso # (Auto) (0.0-0.2) X10*3/uL Abs Immat Gran (auto) (0.00-0.03) X10*3/uL Absolute Neuts (auto) (2.0-8.3) X10*3/uL Absolute Nucleated RBC (0.0-0.012) X10*3/uL Nucleated RBC % (auto) (0.0-0.2) /100WBC Sodium (135-145) mmol/L Potassium (3.3-5.1) mmol/L Chloride (96-108) mmol/L Carbon Dioxide (22-29) mmol/L Anion Gap (12-20) BUN (9-16) mg/dL Creatinine (0.5-1.4) mg/dL Estim Creat Clear Calc Estimated GFR Random Glucose (60-115) mg/dL Calcium (8.4-10.2) mg/dL Magnesium (1.6-2.6) mg/dL Troponin I High Sens (<3.5-17.0) ng/L TSH 0.52 (0.32-4.0) uIU/mL Urine Color STRAW Urine Appearance CLEAR Urine pH 7.5 (5.0-8.0) Ur Specific [place] 1.010 (1.005-1.025) Urine Protein NEG (NEG-TRACE) MG/DL Urine Glucose (UA) NEG (NEG) MG/DL Urine Ketones 40 (NEG) MG/DL Urine Blood NEG (NEG) Urine Nitrite NEG (NEG) Ur Leukocyte Esterase NEG (NEG) Urine Test NEGATIVE (NEGATIVE) <Tayla Andre NP - Last Filed: 04/23/21 23:05> Lab Results 04/23/21 04/23/21 04/23/21 Range/Units 13:39 13:39 13:39 WBC 9.0 (4.8-10.8) X10*3/uL RBC 4.46 (4.20-5.50) X10*6/uL Hgb 13.2 (12.0-16.0) g/dl Hct 39.7 (37-47) % MCV 89.0 (80-98) fL MCH 29.6 (27.0-33.0) pg MCHC 33.2 (31.0-35.0) g/dl RDW 11.9 (11.0-16.0) % Plt Count 238 (160-400) X10*3/uL MPV 9.9 (9.4-12.3) fL Immature Gran % (Auto) 0.2 (0.0-0.4) % Neut % (Auto) 66.9 (45-73) % Lymph % (Auto) 22.3 (20-40) % [place] % (Auto) 5.8 (2-11) % Eos % (Auto) 4.2 H (0-4) % Baso % (Auto) 0.6 (0-2) % Lymph # (Auto) 2.0 (1.2-4.9) X10*3/uL [place] # (Auto) 0.5 (0.1-1.2) X10*3/uL Eos # (Auto) 0.4 (0.0-0.4) X10*3/uL Baso # (Auto) 0.1 (0.0-0.2) X10*3/uL Abs Immat Gran (auto) 0.02 (0.00-0.03) X10*3/uL Absolute Neuts (auto) 6.0 (2.0-8.3) X10*3/uL Absolute Nucleated RBC 0.000 (0.0-0.012) X10*3/uL Nucleated RBC % (auto) 0.0 (0.0-0.2) /100WBC Sodium 139 (135-145) mmol/L Potassium 4.0 (3.3-5.1) mmol/L Chloride 105 (96-108) mmol/L Carbon Dioxide 25 (22-29) mmol/L Anion Gap 13 (12-20) BUN 12 (9-16) mg/dL Creatinine 0.79 (0.5-1.4) mg/dL Estim Creat Clear Calc 96.0 Estimated GFR > 60 Random Glucose 95 (60-115) mg/dL Calcium 9.6 D (8.4-10.2) mg/dL Magnesium 2.0 (1.6-2.6) mg/dL Troponin I High Sens < 3.5 (<3.5-17.0) ng/L TSH (0.32-4.0) uIU/mL Urine Color Urine Appearance Urine pH (5.0-8.0) Ur Specific [place] (1.005-1.025) Urine Protein (NEG-TRACE) MG/DL Urine Glucose (UA) (NEG) MG/DL Urine Ketones (NEG) MG/DL Urine Blood (NEG) Urine Nitrite (NEG) Ur Leukocyte Esterase (NEG) Urine Test (NEGATIVE) 04/23/21 04/23/2121 Range/Units 17:21 17:34 17:34 WBC (4.8-10.8) X10*3/uL RBC (4.20-5.50) X10*6/uL Hgb (12.0-16.0) g/dl Hct (37-47) % MCV (80-98) fL MCH (27.0-33.0) pg MCHC (31.0-35.0) g/dl RDW (11.0-16.0) % Plt Count (160-400) X10*3/uL MPV (9.4-12.3) fL Immature Gran % (Auto) (0.0-0.4) % Neut % (Auto) (45-73) % Lymph % (Auto) (20-40) % [place] % (Auto) (2-11) % Eos % (Auto) (0-4) % Baso % (Auto) (0-2) % Lymph # (Auto) (1.2-4.9) X10*3/uL [place] # (Auto) (0.1-1.2) X10*3/uL Eos # (Auto) (0.0-0.4) X10*3/uL Baso # (Auto) (0.0-0.2) X10*3/uL Abs Immat Gran (auto) (0.00-0.03) X10*3/uL Absolute Neuts (auto) (2.0-8.3) X10*3/uL Absolute Nucleated RBC (0.0-0.012) X10*3/uL Nucleated RBC % (auto) (0.0-0.2) /100WBC Sodium (135-145) mmol/L Potassium (3.3-5.1) mmol/L Chloride (96-108) mmol/L Carbon Dioxide (22-29) mmol/L Anion Gap (12-20) BUN (9-16) mg/dL Creatinine (0.5-1.4) mg/dL Estim Creat Clear Calc Estimated GFR Random Glucose (60-115) mg/dL Calcium (8.4-10.2) mg/dL Magnesium (1.6-2.6) mg/dL Troponin I High Sens (<3.5-17.0) ng/L TSH 0.52 (0.32-4.0) uIU/mL Urine Color STRAW Urine Appearance CLEAR Urine pH 7.5 (5.0-8.0) Ur Specific [place] 1.010 (1.005-1.025) Urine Protein NEG (NEG-TRACE) MG/DL Urine Glucose (UA) NEG (NEG) MG/DL Urine Ketones 40 (NEG) MG/DL Urine Blood NEG (NEG) Urine Nitrite NEG (NEG) Ur Leukocyte Esterase NEG (NEG) Urine Test NEGATIVE (NEGATIVE) <Daryl Bowling MD - Last Filed: 04/23/21 16:39> Imaging Data Chest x-ray: Attestation: I personally reviewed and interpreted this imaging study as follows: <Tayla Andre NP - Last Filed: 04/23/21 23:05> Radiologist's impression: EXAMINATION: XR CHEST CLINICAL INFORMATION: Chest pain and shortness of breath. COMPARISON: Chest radiograph dated 03/10/2021. TECHNIQUE: Frontal view of the chest was obtained. FINDINGS: No significant abnormality is noted involving the heart, lungs, mediastinum, bony thorax or soft tissues. XR/XR chest 1V IMPRESSION: Unremarkable examination. ? <Tayla Andre NP - Last Filed: 04/23/21 23:05> CT scan - chest: Attestation: I personally reviewed and interpreted this imaging study as follows: <Tayla Andre NP - Last Filed: 04/23/21 23:05> Radiologist's impression: FINDINGS: The bolus timing on this study was acceptable for visualization of the pulmonary arterial tree. There are no intraluminal pulmonary arterial filling defects present to suggest pulmonary embolism. The lungs are clear. No abnormal pulmonary nodules or masses are appreciated. No significant hilar or mediastinal adenopathy.? There is no evidence of pleural effusion or pneumothorax. The heart is normal in size. No evidence of ventricular septal bowing or right heart strain. Great vessels are normal. Otherwise the mediastinum is unremarkable.? There is no pericardial effusion or pericardial thickening. Limited evaluation of the upper abdominal viscera is unremarkable. CT/CT angio chest PE protocol IMPRESSION: Unremarkable examination. ? VTE: Negative <Tayla Andre NP - Last Filed: 04/23/21 23:05> ECG Data ECG #1: Attestation: I personally reviewed and interpreted this ECG as follows: <Tayla Andre NP - Last Filed: 04/23/21 23:05> ECG interpretation date: 04/23/21 <Tayla Andre NP - Last Filed: 04/23/21 23:05> ECG interpretation time: 13:25 <Tayla Andre NP - Last Filed: 04/23/21 23:05> Prior ECG tracings: not available for review <Tayla Andre NP - Last Filed: 04/23/21 23:05> Interpretation: Vent. rate 77 BPM PA interval 132 ms QRS duration 68 ms QT/QTc 378/427 ms P-R-T axes 13 1 27 Normal sinus rhythm Normal ECG No previous ECGs available <Tayla Andre NP - Last Filed: 04/23/21 23:05> Discharge Plan Discharge Clinical Impression: Atypical chest pain <Tayla Andre NP - Last Filed: 04/23/21 23:05> Patient Disposition: Home, Self-Care <Tayla Adnre NP - Last Filed: 04/23/21 23:05> Instructions: Noncardiac Chest Pain (ED) <Tayla Andre NP - Last Filed: 04/23/21 23:05> Additional Instructions: You were evaluated for shortness of breath, palpitations, and chest pressure. EKG is normal sinus rhythm. Troponins are negative. Your CT angio of the chest was negative for blood clots and indication for inflammation around the heart or fluid collections. Please use ibuprofen 600 mg every 6-8 hours as needed for pain management. Thank you for choosing this emergency department for evaluation. Please follow-up with primary care physician as needed. Return to the emergency depart ment for any new, concerning, or worsening symptoms. <Tayla Andre NP - Last Filed: 04/23/21 23:05> Prescriptions: No Action amoxicillin-pot clavulanate [Augmentin] 875-125 mg tablet 1 tab PO BID Qty: 14 RF: 0 ondansetron 4 mg tablet,disintegrating 4 mg PO Q8H PRN (Reason: nausea and vomiting) Qty: 7 RF: 0 prednisone 20 mg tablet 40 mg PO DAILY Qty: 10 RF: 0 benzonatate [Tessalon Perles] 100 mg capsule 100 mg PO TID PRN (Reason: cough) Qty: 14 RF: 0 amoxicillin-pot clavulanate [Augmentin] 875-125 mg tablet 1 tab PO BID Qty: 20 RF: 0 ondansetron HCl 8 mg tablet 8 mg PO Q8H PRN (Reason: nausea and vomiting) Qty: 30 RF: 1 oxycodone-acetaminophen [Percocet] 10-325 mg tablet 1 tab PO Q6H PRN (Reason: pain) Qty: 10 RF: 0 <Tayla Andre NP - Last Filed: 04/23/21 23:05> Stand Alone Forms: Work/School Release <Tayla Andre NP - Last Filed: 04/23/21 23:05> Interventions: ED Discharge Assessment Last Done: 04/23/21 22:09 <Tayla Andre NP - Last Filed: 04/23/21 23:05> Discharge Date/Time: 04/23/21 22:10 <Tayla Andre NP - Last Filed: 04/23/21 23:05>
[2021-04-23] MEDS: Ibuprofen 600 MG TABLET PO (16:52)
--- NOTE | 2021-04-23 17:30 | PC.NURSE ---
pt alert and oriented x3, vss, lscta. Pt states she has been having chest pain and sob since yesterday which has gotten worse over the course of today. No c/o dizziness/lightheadedness. She also states she has been having tremors which is new. Pt reports that she has never experienced these symptoms before and is worried because a family member had the same problem. Pt received pain meds which she reports was effective, labs drawn, pt awaiting CT scan. No apparent distress noted.
[2021-04-23 17:44] LABS: Glucose Urine UA NEG (NEG); Leukocyte Esterase Urine NEG (NEG); Nitrite Urine NEG (NEG); PH 7.5 (5.0-8.0); Urine Blood NEG (NEG); Urine Ketones 40 MG/DL (NEG); Urine Protein NEG (NEG-TRACE)
[2021-04-23 17:46] LABS: Appearance Urine CLEAR; Color Urine STRAW; UPreg QC Valid YES; Urine Pregnancy NEGATIVE (NEGATIVE)
[2021-04-23 18:21] LABS: Thyroid Stimulating Hormone 0.52 uIU/mL (0.32-4.0)
[2021-04-23] MEDS: iohexoL 350 MG/ML 100 ML INFUS..BTL IV (19:29)
[2021-04-23 21:26] VITALS: BP 111/69; PULSE 65; RESP 18; O2SAT 97
== END 2021-04-23 22:10 | disposition home or self-care (01) ==
PROVIDERS: Nurse Practitioner Family; Emergency Provider Emergency Medicine; PCP Internal Medicine
DX: R07.89 Other chest pain (principal); R06.02 Shortness of breath
CPT/HCPCS: 36415; 71045; 71275; 80048; 81003; 81025; 83735; 84443; 84484; 85025; 93005; 99284; Q9967

== ENCOUNTER 2021-08-27 23:57 | Emergency (ER) | payer OTHER, SELFPAY ==
--- NOTE | ~2021-08-27 | CT_ITS ---
EXAMINATION: CT ABDOMEN AND PELVIS WITHOUT CONTRAST CLINICAL INFORMATION: Flank pain. Question stone. COMPARISON: 07/20/2020 TECHNIQUE: Multidetector volumetric imaging was performed from the superior aspect of the liver through the pubic symphysis. Sagittal and coronal reformatted images were obtained on the technologist's workstation. This CT examination was performed using dose optimization techniques as appropriate, variously including the following: *Automated exposure control *Adjustment of mA and/or kV according to patient size (this includes techniques or standardized protocols for targeted exams where dose is matched to indication/reason for exam; i.e. extremities or head) *Use of iterative reconstruction technique DLP: 632 mGy-cm FINDINGS: LUNG BASES: The visualized lung bases are unremarkable. LIVER, GALLBLADDER, AND BILIARY TREE: The liver is normal in size, shape, and attenuation. No focal hepatic lesion or biliary ductal dilatation is present. The gallbladder is unremarkable with no evidence of radiopaque gallstones, gallbladder wall thickening, or obvious pericholecystic inflammatory changes. PANCREAS: Unremarkable. SPLEEN: Unremarkable. ADRENAL GLANDS: Unremarkable. KIDNEYS AND URETERS: The kidneys are normal in size, shape, and attenuation. No hydronephrosis or hydroureter. There are numerous bilateral renal calculi again noted. On the right there are at least 4 calculi present. The largest is seen at the midpole measuring 0.3 cm, 12 cm from the posterior axillary line. On the left there are at least 3 calculi. The largest measures 0.3 cm at the midpole, 10 cm from the posterior axillary line. BLADDER: Unremarkable. GASTROINTESTINAL TRACT: The stomach is unremarkable. Normal caliber small bowel. No obstruction. Normal appendix. No colonic wall thickening or acute inflammatory change. No free air or free fluid. ABDOMINAL WALL: No significant hernia is appreciated. LYMPH NODES: Normal. VASCULAR: Unremarkable. PELVIC VISCERA: The uterus and adnexa are unremarkable. OSSEOUS STRUCTURES: No acute or suspicious osseous abnormality. CT/CT abdomen pelvis wo con IMPRESSION: No hydronephrosis or hydroureter. Multiple nonobstructing bilateral renal calculi are present. Fleischner guidelines were followed.
[2021-08-28 00:07] VITALS: BP 137/73; PULSE 99; RESP 16; TEMP 36.9; O2SAT 98; BMI 33.0
[2021-08-28 00:30] LABS: Appearance Urine CLEAR; Color Urine YELLOW; Glucose Urine UA NEG (NEG); Leukocyte Esterase Urine NEG (NEG); Nitrite Urine NEG (NEG); PH 6.5 (5.0-8.0); UACC Culture Trigger NO; Urine Blood TRACE (NEG); Urine Ketones NEG (NEG); Urine Protein NEG (NEG-TRACE)
[2021-08-28 00:30] LABS: MANUAL DIFF FLAG NO
[2021-08-28 00:31] LABS: UPreg QC Valid YES; Urine Pregnancy NEGATIVE (NEGATIVE)
[2021-08-28 00:33] LABS: Basophils Absolute Auto 0.1 X10*3/uL (0.0-0.2); Basophils Percent Auto 0.5 % (0-2); Eosinophils Absolute Auto 0.8 X10*3/uL (0.0-0.4); Eosinophils Percent Auto 6.4 % (0-4); Hematocrit 39.2 % (37.0-47.0); Hemoglobin 12.9 g/dl (12.0-16.0); Imm Gran Abs Auto 0.04 X10*3/uL (0.00-0.03); Imm Gran Pct Auto 0.3 % (0.0-0.4); Lymphocytes Absolute Auto 2.7 X10*3/uL (1.2-4.9); Lymphocytes Percent Auto 21.1 % (20-40); Mean Corpuscular HGB Conc 32.9 g/dl (31.0-35.0); Mean Corpuscular Volume 91.2 fL (80.0-98.0); Mean Platelet Volume 9.8 fL (9.4-12.3); Monocytes Absolute Auto 0.9 X10*3/uL (0.1-1.2); Monocytes Percent Auto 7.2 % (2-11); Neutrophils Absolute Auto 8.2 x10*3/uL (2.0-8.3); Neutrophils Percent Auto 64.5 % (45-73); Platelet Count 236 X10*3/uL (160-400); Red Cell Distribution Width 11.9 % (11.0-16.0); White Blood Count 12.7 X10*3/uL (4.8-10.8)
[2021-08-28 00:34] LABS: Bacteria Urine 2+ /LPF; Squamous Epithelial Cell Urine 2+ /LPF
[2021-08-28 00:58] LABS: Alanine Aminotransferase 16 U/L (0-31); Albumin Level 4.4 g/dL (3.5-5.0); Alkaline Phosphatase 74 U/L (39-117); Anion Gap 12 (12-20); Aspartate Amino Transferase 15 U/L (5-31); Bilirubin Direct 0.2 mg/dL (0.0-0.5); Bilirubin Total 0.6 mg/dL (0.0-1.0); Blood Urea Nitrogen 15 mg/dL (9-16); Calcium 9.5 mg/dL (8.4-10.2); Carbon Dioxide 25 mmol/L (22-29); Chloride 106 mmol/L (96-108); Estimated Glomerular Filt Rate > 60; Glucose Random 130 mg/dL (60-115); Lipase 41 U/L (8-78); Potassium 3.6 mmol/L (3.3-5.1); Sodium 139 mmol/L (135-145); Total Protein 7.4 g/dL (6.5-8.0)
--- NOTE | 2021-08-28 01:12 | ED_ITS ---
HPI - Abdominal Pain General Chief Complaint: Abdominal Pain Stated Complaint: lower right abd pain, tremors, nausea Time Seen by Provider: 08/28/21 01:12 Source: patient Mode of arrival: ambulatory Limitations: no limitations History of Present Illness HPI narrative: . History of ovarian cyst nonobstructive kidney stone comes here for sudden onset of right mid abdomen since 17:00 yesterday associated with nausea, no vomiting no fever no chills no diarrhea no blood in the urine no dysuria frequency never had similar pain in the past had a CT scan done 07/25 which showed nonobstructive kidney stone and ovarian cyst Related Data Previous Rx's Medication Instructions Recorded amoxicillin 875 mg-potassium 1 tab PO BID #20 tab 07/14/20 clavulanate 125 mg tablet (Augmentin) ondansetron HCl 8 mg tablet 8 mg PO Q8H PRN #30 tab 07/14/20 oxycodone-acetaminophen 10 mg-325 1 tab PO Q6H PRN #10 tab 07/14/20 mg tablet (Percocet) amoxicillin 875 mg-potassium 1 tab PO BID #14 tab 03/10/21 clavulanate 125 mg tablet (Augmentin) benzonatate 100 mg capsule 100 mg PO TID PRN #14 cap 03/10/21 (Tessalon Perles) ondansetron 4 mg disintegrating 4 mg PO Q8H PRN #7 tab 03/10/21 tablet prednisone 20 mg tablet 40 mg PO DAILY #10 tab 03/10/21 Allergies Allergy/AdvReac Type Severity Reaction Status Date / Time No Known Allergies Allergy Verified 08/28/21 01:35 [No Known Allergies*] Review of Systems Review of Systems Yes all other systems are reviewed and are negative Physical Exam Vital Signs: Vital Signs: Last Vital Signs Temp 98.0 F 08/28/21 01:16 Pulse 93 08/28/21 01:16 Resp 16 08/28/21 01:16 BP 106/62 08/28/21 01:16 Pulse Ox 100 08/28/21 01:16 BMI result Body Mass Index 33.0 Appearance: Alert. Oriented X3. In mild distress. Eyes: No pallor or icterus ENT: Pharynx normal. Oral Mucosa moist Neck: Normal inspection. Neck supple. CVS: Normal heart rate and rhythm. Pulses normal. Respiratory: No respiratory distress. Equal air entry bilateral, no wheezing/rales/rhonchi Abdomen: Soft , mild deep tenderness right mid abdomen Bowel sounds are present, no mass palpable, mild right CVA tenderness Skin: Skin warm and dry. Normal skin color. Normal skin turgor. Extremities: No lower extremity edema. No calf tenderness Neuro: Oriented X 3. MDM - Abdominal Pain MDM Narrative Medical decision making narrative: Patient with acute onset of right mid abdominal pain with right flank pain likely kidney stone awaiting for the CT scan report to rule out appendicitis Lab Data Attestation: I reviewed the patient's lab results. Result diagrams: 08/28/21 00:26 08/28/21 00:26 Labs: Lab Results 08/28/21 08/28/21 08/28/21 Range/Units 00:15 00:15 00:26 WBC 12.7 H (4.8-10.8) X10*3/uL RBC 4.30 (4.20-5.50) X10*6/uL Hgb 12.9 (12.0-16.0) g/dl Hct 39.2 (37.0-47.0) % MCV 91.2 (80.0-98.0) fL MCH 30.0 (27.0-33.0) pg MCHC 32.9 (31.0-35.0) g/dl RDW 11.9 (11.0-16.0) % Plt Count 236 (160-400) X10*3/uL MPV 9.8 (9.4-12.3) fL Immature Gran % (Auto) 0.3 (0.0-0.4) % Neut % (Auto) 64.5 (45-73) % Lymph % (Auto) 21.1 (20-40) % [place] % (Auto) 7.2 (2-11) % Eos % (Auto) 6.4 H (0-4) % Baso % (Auto) 0.5 (0-2) % Lymph # (Auto) 2.7 (1.2-4.9) X10*3/uL [place] # (Auto) 0.9 (0.1-1.2) X10*3/uL Eos # (Auto) 0.8 H (0.0-0.4) X10*3/uL Baso # (Auto) 0.1 (0.0-0.2) X10*3/uL Abs Immat Gran (auto) 0.04 H (0.00-0.03) X10*3/uL Absolute Neuts (auto) 8.2 (2.0-8.3) x10*3/uL Absolute Nucleated RBC 0.000 (0.0-0.012) X10*3/uL Nucleated RBC % (auto) 0.0 (0.0-0.2) /100WBC Sodium (135-145) mmol/L Potassium (3.3-5.1) mmol/L Chloride (96-108) mmol/L Carbon Dioxide (22-29) mmol/L Anion Gap (12-20) BUN (9-16) mg/dL Creatinine (0.5-1.4) mg/dL Estim Creat Clear Calc Estimated GFR Random Glucose (60-115) mg/dL Calcium (8.4-10.2) mg/dL Total Bilirubin (0.0-1.0) mg/dL Direct Bilirubin (0.0-0.5) mg/dL AST (5-31) U/L ALT (0-31) U/L Alkaline Phosphatase (39-117) U/L Total Protein (6.5-8.0) g/dL Albumin (3.5-5.0) g/dL Lipase (8-78) U/L Urine Color YELLOW Urine Appearance CLEAR Urine pH 6.5 (5.0-8.0) Ur Specific [place] 1.010 (1.005-1.025) Urine Protein NEG (NEG-TRACE) MG/DL Urine Glucose (UA) NEG (NEG) MG/DL Urine Ketones NEG (NEG) MG/DL Urine Blood TRACE (NEG) Urine Nitrite NEG (NEG) Ur Leukocyte Esterase NEG (NEG) Urine RBC 5-9 H (0) /HPF Urine WBC 1-4 (0-4) /HPF Ur Squamous Epith Cells 2+ /LPF Urine Bacteria 2+ /LPF Urine Test NEGATIVE (NEGATIVE) 08/28/21 Range/Units 00:26 WBC (4.8-10.8) X10*3/uL RBC (4.20-5.50) X10*6/uL Hgb (12.0-16.0) g/dl Hct (37.0-47.0) % MCV (80.0-98.0) fL MCH (27.0-33.0) pg MCHC (31.0-35.0) g/dl RDW (11.0-16.0) % Plt Count (160-400) X10*3/uL MPV (9.4-12.3) fL Immature Gran % (Auto) (0.0-0.4) % Neut % (Auto) (45-73) % Lymph % (Auto) (20-40) % [place] % (Auto) (2-11) % Eos % (Auto) (0-4) % Baso % (Auto) (0-2) % Lymph # (Auto) (1.2-4.9) X10*3/uL [place] # (Auto) (0.1-1.2) X10*3/uL Eos # (Auto) (0.0-0.4) X10*3/uL Baso # (Auto) (0.0-0.2) X10*3/uL Abs Immat Gran (auto) (0.00-0.03) X10*3/uL Absolute Neuts (auto) (2.0-8.3) x10*3/uL Absolute Nucleated RBC (0.0-0.012) X10*3/uL Nucleated RBC % (auto) (0.0-0.2) /100WBC Sodium 139 (135-145) mmol/L Potassium 3.6 (3.3-5.1) mmol/L Chloride 106 (96-108) mmol/L Carbon Dioxide 25 (22-29) mmol/L Anion Gap 12 (12-20) BUN 15 (9-16) mg/dL Creatinine 0.84 (0.5-1.4) mg/dL Estim Creat Clear Calc 90.0 Estimated GFR > 60 Random Glucose 130 H (60-115) mg/dL Calcium 9.5 (8.4-10.2) mg/dL Total Bilirubin 0.6 (0.0-1.0) mg/dL Direct Bilirubin 0.2 (0.0-0.5) mg/dL AST 15 D (5-31) U/L ALT 16 (0-31) U/L Alkaline Phosphatase 74 (39-117) U/L Total Protein 7.4 (6.5-8.0) g/dL Albumin 4.4 (3.5-5.0) g/dL Lipase 41 (8-78) U/L Urine Color Urine Appearance Urine pH (5.0-8.0) Ur Specific [place] (1.005-1.025) Urine Protein (NEG-TRACE) MG/DL Urine Glucose (UA) (NEG) MG/DL Urine Ketones (NEG) MG/DL Urine Blood (NEG) Urine Nitrite (NEG) Ur Leukocyte Esterase (NEG) Urine RBC (0) /HPF Urine WBC (0-4) /HPF Ur Squamous Epith Cells /LPF Urine Bacteria /LPF Urine Test (NEGATIVE) Discharge Plan Discharge Clinical Impression: Abdominal pain Qualifiers: Abdominal location: right lower quadrant Qualified Code(s): R10.31 - Right lo wer quadrant pain Prescriptions: No Action amoxicillin-pot clavulanate [Augmentin] 875-125 mg tablet 1 tab PO BID Qty: 14 RF: 0 ondansetron 4 mg tablet,disintegrating 4 mg PO Q8H PRN (Reason: nausea and vomiting) Qty: 7 RF: 0 prednisone 20 mg tablet 40 mg PO DAILY Qty: 10 RF: 0 benzonatate [Tessalon Perles] 100 mg capsule 100 mg PO TID PRN (Reason: cough) Qty: 14 RF: 0 amoxicillin-pot clavulanate [Augmentin] 875-125 mg tablet 1 tab PO BID Qty: 20 RF: 0 ondansetron HCl 8 mg tablet 8 mg PO Q8H PRN (Reason: nausea and vomiting) Qty: 30 RF: 1 oxycodone-acetaminophen [Percocet] 10-325 mg tablet 1 tab PO Q6H PRN (Reason: pain) Qty: 10 RF: 0 PMFSH Past Medical History Medical History Asthma H/O bronchitis Lung granuloma Social History Social History Alcohol intake: never Patient Tobacco Use Status: Never used Tobacco Advance Directives: No Patient : No
[2021-08-28 01:16] VITALS: BP 106/62; PULSE 93; RESP 16; TEMP 36.7; O2SAT 100
[2021-08-28] MEDS: 0.9 % Sodium Chloride 1,000 ML 999 ML IVCONT (01:36)
[2021-08-28] MEDS: Ketorolac Tromethamine 30 MG/ML VIAL IVPUSH (01:36)
[2021-08-28] MEDS: ondansetron HCL 4 MG/2 ML VIAL IVPUSH (01:42)
[2021-08-28 03:09] VITALS: BP 107/69; PULSE 106; RESP 16; TEMP 36.8; O2SAT 100
== END 2021-08-28 03:29 | disposition home or self-care (01) ==
PROVIDERS: Emergency Provider Internal Medicine
DX: R10.31 Right lower quadrant pain (principal)
CPT/HCPCS: 36415; 74176; 80053; 81001; 81025; 82248; 83690; 85025; 96361; 96374; 96375; 99284; J1885; J2405

== ENCOUNTER 2022-05-21 12:16 | Emergency (ER) | payer OTHER, SELFPAY ==
--- NOTE | ~2022-05-21 | CT_ITS ---
EXAMINATION: CT ABDOMEN AND PELVIS WITH CONTRAST CLINICAL INFORMATION: Left flank pain COMPARISON: 08/28/2021 TECHNIQUE: Multidetector volumetric images were obtained from the superior aspect of the liver through the pubic symphysis following administration 85 mL of Omnipaque 350 intravenous contrast. Sagittal and coronal reformatted images were obtained on the technologist's workstation. Oral contrast: No This CT examination was performed using dose optimization techniques as appropriate, variously including the following: *Automated exposure control *Adjustment of mA and/or kV according to patient size (this includes techniques or standardized protocols for targeted exams where dose is matched to indication/reason for exam; i.e. extremities or head) *Use of iterative reconstruction technique DLP: 592 mGy-cm FINDINGS: LUNG BASES: The visualized lung bases are unremarkable. LIVER, GALLBLADDER, AND BILIARY TREE: The liver is normal in size, shape, and attenuation. No focal hepatic lesion or biliary ductal dilatation is present. The gallbladder is unremarkable with no evidence of radiopaque gallstones, gallbladder wall thickening, or obvious pericholecystic inflammatory changes. PANCREAS: Unremarkable. SPLEEN: Unremarkable. ADRENAL GLANDS: Unremarkable. KIDNEYS AND URETERS: Once again nonobstructing calculi are noted. BLADDER: Unremarkable. GASTROINTESTINAL TRACT: The small and large bowel are unremarkable. The appendix is unremarkable. ABDOMINAL WALL: No significant hernia is appreciated. LYMPH NODES: Normal. VASCULAR: Unremarkable. PELVIC VISCERA: Unremarkable. OSSEOUS STRUCTURES: Unremarkable. CT/CT abdomen pelvis w IV con IMPRESSION: Once again some nonobstructing renal calculi are noted. No evidence of ureteral stone or obstruction. The bowel pattern is within normal limits. No free fluid Fleischner guidelines were followed.
[2022-05-21 12:31] VITALS: BP 123/69; PULSE 95; RESP 18; TEMP 36.6; O2SAT 99; BMI 30.9
[2022-05-21 12:56] LABS: MANUAL DIFF FLAG NO
[2022-05-21 13:00] LABS: Basophils Absolute Auto 0.1 X10*3/uL (0.0-0.2); Basophils Percent Auto 0.7 % (0-2); Eosinophils Absolute Auto 0.7 X10*3/uL (0.0-0.4); Eosinophils Percent Auto 6.4 % (0-4); Hematocrit 40.2 % (37.0-47.0); Hemoglobin 13.3 g/dl (12.0-16.0); Imm Gran Abs Auto 0.03 X10*3/uL (0.00-0.03); Imm Gran Pct Auto 0.3 % (0.0-0.4); Lymphocytes Absolute Auto 2.4 X10*3/uL (1.2-4.9); Lymphocytes Percent Auto 23.1 % (20-40); Mean Corpuscular HGB Conc 33.1 g/dl (31.0-35.0); Mean Corpuscular Hemoglobin 30.1 pg (27.0-33.0); Mean Platelet Volume 9.7 fL (9.4-12.3); Monocytes Absolute Auto 0.5 X10*3/uL (0.1-1.2); Monocytes Percent Auto 5.2 % (2-11); Neutrophils Absolute Auto 6.7 x10*3/uL (2.0-8.3); Neutrophils Percent Auto 64.3 % (45-73); Platelet Count 254 X10*3/uL (160-400); Red Blood Count 4.42 X10*6/uL (4.20-5.50); Red Cell Distribution Width 11.7 % (11.0-16.0); White Blood Count 10.4 X10*3/uL (4.8-10.8)
[2022-05-21 13:00] LABS: Appearance Urine Clear; Color Urine Yellow; Glucose Urine UA Negative (Negative); Leukocyte Esterase Urine Negative (Negative); Nitrite Urine Negative (Negative); PH 6.5 (5.0-9.0); UMIC TRIGGER UACC YES; Urine Blood Small (1+) (Negative); Urine Ketones 15 mg/dL (Negative); Urine Protein Negative (Neg-Trace)
[2022-05-21 13:01] LABS: UPreg QC Valid YES; Urine Pregnancy NEGATIVE (NEGATIVE)
[2022-05-21 13:10] LABS: Bacteria Urine None Seen (None Seen); Hyaline Casts Urine 0-2 /LPF (0-2); RBC Urine 0-2 /HPF (0-2); Squamous Epithelial Cell Urine 0-2 /HPF (0-2); WBC Urine 0-5 /HPF (0-5)
[2022-05-21 13:21] LABS: Alanine Aminotransferase 14 U/L (0-31); Albumin Level 4.5 g/dL (3.5-5.0); Alkaline Phosphatase 64 U/L (39-117); Anion Gap 16 (12-20); Aspartate Amino Transferase 16 U/L (5-31); Bilirubin Direct 0.4 mg/dL (0.0-0.5); Bilirubin Total 0.9 mg/dL (0.0-1.0); Blood Urea Nitrogen 13 mg/dL (9-16); Calcium 9.6 mg/dL (8.4-10.2); Carbon Dioxide 24 mmol/L (22-29); Chloride 104 mmol/L (96-108); Creatinine Clr Calc Pharmacy 90.3; Estimated Glomerular Filt Rate > 60; Glucose Random 88 mg/dL (60-115); Lipase 29 U/L (8-78); Potassium 4.1 mmol/L (3.3-5.1); Sodium 140 mmol/L (135-145); Total Protein 7.7 g/dL (6.5-8.0)
--- NOTE | 2022-05-21 16:19 | ED.ABDPAIN ---
HPI - Abdominal Pain General Chief Complaint: Abdominal Pain Stated Complaint: upper L side abd pain Time Seen by Provider: 05/21/22 16:19 Source: patient Mode of arrival: ambulatory Limitations: no limitations History of Present Illness HPI narrative: 36-year-old female past medical history significant for diverticulitis, kidney stones, asthma presenting to the emergency department with complaints of abdominal pain. Patient tells me initially this started as an epigastric burning, discomfort and it has now progressed to epigastric pain with radiation to the left flank x4 days. Patient reports that the pain is worse with bending, lifting and turning to the left side. Patient tells me that the pain is an aching constant pain and at times there are sharp pain as well that is very uncomfortable. Patient also mentions that her stool has been softer than usual however not quite diarrhea. She denies recent antibiotic use, travel, changes in dietary habits and denies blood in stool. Patient reports subjective chills however no fevers, chest pain, shortness of breath, nausea, vomiting, headache, dizziness, vision changes. Related Data Previous Rx's Medication Instructions Recorded amoxicillin 875 mg-potassium 1 tab PO BID #20 tabs 07/14/20 clavulanate 125 mg tablet (Augmentin) ondansetron HCl 8 mg tablet 8 mg PO Q8H PRN nausea and 07/14/20 vomiting #30 tabs oxycodone-acetaminophen 10 mg-325 1 tab PO Q6H PRN pain #10 tabs 07/14/20 mg tablet (Percocet) amoxicillin 875 mg-potassium 1 tab PO BID #14 tabs 03/10/21 clavulanate 125 mg tablet (Augmentin) benzonatate 100 mg capsule 100 mg PO TID PRN cough #14 caps 03/10/21 (Tessanjay Singh) ondansetron 4 mg disintegrating 4 mg PO Q8H PRN nausea and 03/10/21 tablet vomiting #7 tabs prednisone 20 mg tablet 40 mg PO DAILY #10 tabs 03/10/21 cyclobenzaprine 10 mg tablet 10 mg PO BEDTIME PRN muscle spasm 05/21/22 #7 tabs lidocaine 5 % topical patch 1 patch topical DAILY PRN pain #15 05/21/22 ea loperamide 2 mg capsule 2 mg PO Q6H PRN loose stool #14 05/21/22 caps omeprazole 20 mg capsule,delayed 20 mg PO DAILY #30 caps 05/21/22 release Allergies Allergy/AdvReac Type Severity Reaction Status Date / Time No Known Allergies Allergy Verified 08/28/21 01:35 [No Known Allergies*] Review of Systems Review of Systems Constitutional : No Weight loss, No Fever, No Chills, No Fatigue, No Malaise ENT/Mouth : No sore throat, No Rhinorrhea Eyes: No Eye Pain, No Swelling, No Redness Cardiovascular : No Chest Pain, No SOB, No Dyspnea on Exertion, No Orthopnea, No Edema, No Palpitations Respiratory : No Cough, No Sputum, No Wheezing Gastrointestinal : No Nausea, No Vomiting, No Diarrhea, No Constipation, + abdominal Pain, No Hematochezia, No Melena Genitourinary : No Dysuria, No Urinary Frequency, No Hematuria, Musculoskeletal : No joint pain, No Myalgias, No Joint Swelling, + flank pain Skin : No Skin Lesions, No rash Neuro : No Weakness, No Numbness, No Dizziness, No Headache All other systems reviewed and are negative Yes all other systems are reviewed and are negative [facility] Past Medical History Attestation statement: The following information was validated with the patient. Source: old records reviewed and nursing notes reviewed Medical History Asthma H/O bronchitis Lung granuloma Social History Social History Alcohol intake: never Patient Tobacco Use Status: Never used Tobacco Use of substances other than those prescribed or required for medical reasons: No Advance Directives: No Advance Directives Information Provided: No Patient : No Physical Exam ED Vital Signs: Vital Signs - 24 hr 05/21/22 12:31 05/21/22 16:30 05/21/22 18:32 Temperature 98 F 97.9 F 98.3 F Pulse Rate 95 79 75 Respiratory Rate 18 20 16 Blood Pressure 123/69 132/75 119/72 Pulse Oximetry 99 100 100 Oxygen Delivery Method Room Air Room Air Room Air BMI result Body Mass Index 30.9 vss Appearance: Alert.? Oriented X3.? No acute distress.? Head: Normocephalic, atraumatic, no step-offs or deformities Eyes: Pupils equal, round and reactive to light.? ENT: Pharynx normal.? Neck: Normal inspection.? Neck supple.? CVS: Normal heart rate and rhythm.? Pulses normal.? Respiratory: No respiratory distress.? Breath sounds normal.? Abdomen: Soft and + LUQ tenderness and mild discomfort to LLQ.? Skin: Skin warm and dry.? Normal skin color.? Normal skin turgor.? Extremities: No lower extremity edema.? No calf ttp. 5/5 strength to bilateral upper and lower extremities Back: No midline tenderness, no C-spine tenderness, full range of motion, no CVA tenderness bilaterally Neuro: Oriented X 3.? No motor deficit.? No sensory deficit. CN 2-12 intact Course Reevaluation(s) Reevaluation #1: CBC within normal limits, unlikely pylo. Chemistry with no acute findings. Urine clean, small amount of blood, negative . COVID negative. CT of the abdomen and pelvis with nonobstructing renal stones, no evidence of ureteral stone or obstruction. Bowel pattern within normal limits. No free fluid. Stones were noted within the kidneys, likely that patient is passing stones as she has some blood in her urine. Also highly suspicious for musculoskeletal pain as she reports significant improvement after Toradol and Lidoderm patch. Patient also received a GI cocktail which she states helped her epigastric pain significantly, at this time patient tolerating p.o., eating at the bedside, feeling much better and requesting to go home. Will provide her with GI follow-up, advised her to return with any new or worsening symptoms. Will also provide her with urology follow-up for recurrent kidney stones. At this time I feel comfortable discharge home will also add omeprazole to the patient's daily medication list as she likely has GERD based off of her history and physical examination. Outlined worrisome signs and symptoms and when to return comfortable discharge To note patient has not had any diarrhea while in the emergency department she did clarify that it was only soft stool and not liquid diarrhea. Low suspicion 1st cluster radium difficile or bacterial diarrhea. Time: 20:26 MDM - Abdominal Pain MDM Narrative Medical decision making narrative: 162 36-year-old female presents with epigastric pain radiating to flank x4 days. Patient also reports soft stools. PE Significant for slight tenderness to the left upper quadrant and left lower quadrant. Normoactive bowel sounds. Unlikely that this is bowel obstruction, acute abdomen, appendicitis, cholecystitis. Concerns for possible diverticulitis or musculoskeletal pain. Plan- labs, UA, hcg, imaging Medical Records Attestation: I reviewed the patient's medical records. Lab Data Attestation: I reviewed the patient's lab results. Result diagrams: 05/21/22 12:52 05/21/22 12:52 Labs: Lab Results 05/21/22 05/21/22 05/21/22 Range/Units 12:48 12:48 12:52 WBC (4.8-10.8) X10*3/uL RBC (4.20-5.50) X10*6/uL Hgb (12.0-16.0) g/dl Hct (37.0-47.0) % MCV (80.0-98.0) fL MCH (27.0-33.0) pg MCHC (31.0-35.0) g/dl RDW (11.0-16.0) % Plt Count (160-400) X10*3/uL MPV (9.4-12.3) fL Immature Gran % (Auto) (0.0-0.4) % Neut % (Auto) (45-73) % Lymph % (Auto) (20-40) % [place] % (Auto) (2-11) % Eos % (Auto) (0-4) % Baso % (Auto) (0-2) % Lymph # (Auto) (1.2-4.9) X10*3/uL [place] # (Auto) (0.1-1.2) X10*3/uL Eos # (Auto) (0.0-0.4) X10*3/uL Baso # (Auto) (0.0-0.2) X10*3/uL Abs Immat Gran (auto) (0.00-0.03) X10*3/uL Absolute Neuts (auto) (2.0-8.3) x10*3/uL Absolute Nucleated RBC (0.0-0.012) X10*3/uL Nucleated RBC % (auto) (0.0-0.2) /100WBC Sodium 140 (135-145) mmol/L Potassium 4.1 (3.3-5.1) mmol/L Chloride 104 (96-108) mmol/L Carbon Dioxide 24 (22-29) mmol/L Anion Gap 16 (12-20) BUN 13 (9-16) mg/dL Creatinine 0.81 (0.5-1.4) mg/dL Estim Creat Clear Calc 90.3 Estimated GFR > 60 Random Glucose 88 (60-115) mg/dL Calcium 9.6 (8.4-10.2) mg/dL Total Bilirubin 0.9 (0.0-1.0) mg/dL Direct Bilirubin 0.4 (0.0-0.5) mg/dL AST 16 (5-31) U/L ALT 14 (0-31) U/L Alkaline Phosphatase 64 (39-117) U/L Total Protein 7.7 (6.5-8.0) g/dL Albumin 4.5 (3.5-5.0) g/dL Lipase 29 (8-78) U/L Urine Color Yellow Urine Appearance Clear Urine pH 6.5 (5.0-9.0) Ur Specific [place] 1.010 (1.005-1.025) Urine Protein Negative (Neg-Trace) mg/dL Urine Glucose (UA) Negative (Negative) mg/dL Urine Ketones 15 (Negative) mg/dL Urine Blood Small (1+) H (Negative) Urine Nitrite Negative (Negative) Ur Leukocyte Esterase Negative (Negative) Urine RBC 0-2 (0-2) /HPF Urine WBC 0-5 (0-5) /HPF Ur Squamous Epith Cells 0-2 (0-2) /HPF Urine Bacteria None Seen (None Seen) Hyaline Casts 0-2 (0-2) /LPF Urine Test NEGATIVE (NEGATIVE) 05/21/22 Range/Units 12:52 WBC 10.4 (4.8-10.8) X10*3/uL RBC 4.42 (4.20-5.50) X10*6/uL Hgb 13.3 (12.0-16.0) g/dl Hct 40.2 (37.0-47.0) % MCV 91.0 (80.0-98.0) fL MCH 30.1 (27.0-33.0) pg MCHC 33.1 (31.0-35.0) g/dl RDW 11.7 (11.0-16.0) % Plt Count 254 (160-400) X10*3/uL MPV 9.7 (9.4-12.3) fL Immature Gran % (Auto) 0.3 (0.0-0.4) % Neut % (Auto) 64.3 (45-73) % Lymph % (Auto) 23.1 (20-40) % [place] % (Auto) 5.2 (2-11) % Eos % (Auto) 6.4 H (0-4) % Baso % (Auto) 0.7 (0-2) % Lymph # (Auto) 2.4 (1.2-4.9) X10*3/uL [place] # (Auto) 0.5 (0.1-1.2) X10*3/uL Eos # (Auto) 0.7 H (0.0-0.4) X10*3/uL Baso # (Auto) 0.1 (0.0-0.2) X10*3/uL Abs Immat Gran (auto) 0.03 (0.00-0.03) X10*3/uL Absolute Neuts (auto) 6.7 (2.0-8.3) x10*3/uL Absolute Nucleated RBC 0.000 (0.0-0.012) X10*3/uL Nucleated RBC % (auto) 0.0 (0.0-0.2) /100WBC Sodium (135-145) mmol/L Potassium (3.3-5.1) mmol/L Chloride (96-108) mmol/L Carbon Dioxide (22-29) mmol/L Anion Gap (12-20) BUN (9-16) mg/dL Creatinine (0.5-1.4) mg/dL Estim Creat Clear Calc Estimated GFR Random Glucose (60-115) mg/dL Calcium (8.4-10.2) mg/dL Total Bilirubin (0.0-1.0) mg/dL Direct Bilirubin (0.0-0.5) mg/dL AST (5-31) U/L ALT (0-31) U/L Alkaline Phosphatase (39-117) U/L Total Protein (6.5-8.0) g/dL Albumin (3.5-5.0) g/dL Lipase (8-78) U/L Urine Color Urine Appearance Urine pH (5.0-9.0) Ur Specific [place] (1.005-1.025) Urine Protein (Neg-Trace) mg/dL Urine Glucose (UA) (Negative) mg/dL Urine Ketones (Negative) mg/dL Urine Blood (Negative) Urine Nitrite (Negative) Ur Leukocyte Esterase (Negative) Urine RBC (0-2) /HPF Urine WBC (0-5) /HPF Ur Squamous Epith Cells (0-2) /HPF Urine Bacteria (None Seen) Hyaline Casts (0-2) /LPF Urine Test (NEGATIVE) Critical Care Time Critical Care Time Critical Care Time: No Discharge Plan Discharge Clinical Impression: Calculus of kidney, Left flank pain, Acute epigastric pain Patient Disposition: Home, Self-Care Instructions: Kidney Stones (ED), Acute Diarrhea (ED), Flank Pain (ED), Epigastric Pain (ED) Additional Instructions: Take your medications as prescribed. If you were prescribed antibiotics today, it is important that you take your medication to their entirety, do not skip any doses, do not finish them early. Follow-up with your primary care provider this week. Follow-up with GI for epigastric discomfort. Follow up with Urology or recurrent kidney stones. Return to the emergency department with new or worsening symptoms. Such as fevers, chills, chest pain, shortness of breath, nausea, vomiting, dizziness, headache, vision changes, lethargy In case of emergency call 911 Its likely that your passing a kidney stone or your having musculoskeletal pain. Your labs were reassuring and urine was unremarkable. CT/CT abdomen pelvis w IV con IMPRESSION: Once again some nonobstructing renal calculi are noted. No evidence of ureteral stone or obstruction. ? The bowel pattern is within normal limits. ? No free fluid ? Fleischner guidelines were followed. Prescriptions: New omeprazole 20 mg capsule,delayed release(DR/EC) 20 mg PO DAILY Qty: 30 0RF cyclobenzaprine 10 mg tablet 10 mg PO BEDTIME PRN (Reason: muscle spasm) Qty: 7 0RF lidocaine 5 % adhesive patch,medicated 1 patch topical DAILY PRN (Reason: pain) Qty: 15 0RF Rx Instructions: leave on most painful area for up to 12 hrs loperamide 2 mg capsule 2 mg PO Q6H PRN (Reason: loose stool) Qty: 14 0RF No Action amoxicillin-pot clavulanate [Augmentin] 875-125 mg tablet 1 tab PO BID Qty: 14 0RF ondansetron 4 mg tablet,disintegrating 4 mg PO Q8H PRN (Reason: nausea and vomiting) Qty: 7 0RF prednisone 20 mg tablet 40 mg PO DAILY Qty: 10 0RF benzonatate [Tessalon Perles] 100 mg capsule 100 mg PO TID PRN (Reason: cough) Qty: 14 0RF amoxicillin-pot clavulanate [Augmentin] 875-125 mg tablet 1 tab PO BID Qty: 20 0RF ondansetron HCl 8 mg tablet 8 mg PO Q8H PRN (Reason: nausea and vomiting) Qty: 30 1RF oxycodone-acetaminophen [Percocet] 10-325 mg tablet 1 tab PO Q6H PRN (Reason: pain) Qty: 10 0RF Referrals: Steve Varghese MD [Physician] - 2 weeks Chloe Estrella MD [Physician] - 2 weeks Stand Alone Forms: Work/School Release
[2022-05-21 16:30] VITALS: BP 132/75; PULSE 79; RESP 20; TEMP 36.6; O2SAT 100
[2022-05-21] MEDS: iohexoL 350 MG/ML 100 ML INFUS..BTL IV (17:30)
[2022-05-21] MEDS: Ketorolac Tromethamine 15 MG/ML VIAL 30 MG IVPUSH (17:58)
[2022-05-21 18:32] VITALS: BP 119/72; PULSE 75; RESP 16; TEMP 36.8; O2SAT 100
[2022-05-21] MEDS: PHENobarb/Hyoscy/Atropine/Scop 10 ML ELIXIR PO (19:19)
[2022-05-21] MEDS: Magnesium Hydrox/Alum Hydrox 30 ML ORAL.SUSP PO (19:19)
[2022-05-21] MEDS: Lidocaine 4 % Patch ADH..PATCH 1 PATCH TRANSDERMA (19:19)
== END 2022-05-21 20:42 | disposition home or self-care (01) ==
PROVIDERS: Emergency Provider Internal Medicine
DX: N20.0 Calculus of kidney (principal); R10.13 Epigastric pain; R10.9 Unspecified abdominal pain
CPT/HCPCS: 36415; 74177; 80048; 80076; 81001; 81003; 81025; 83690; 85025; 96374; 99284; J1885; Q9967

== ENCOUNTER 2022-06-09 03:01 | Emergency (ER) | payer OTHER, SELFPAY ==
[2022-06-09 03:32] VITALS: BP 123/79; PULSE 96; RESP 16; TEMP 38; O2SAT 99; BMI 30.6
--- NOTE | 2022-06-09 03:48 | ED_ITS ---
HPI - Female Genitourinary General Chief complaint: Abdominal Pain Stated complaint: side pain, urgent care gave uti antibiotic Time Seen by Provider: 06/09/22 03:43 Source: patient Mode of arrival: ambulatory Limitations: no limitations History of Present Illness HPI Narrative: Patient with urinary symptoms for last 1 week with frequency dysuria hesitancy was seen here on 05/21 for the flank pain noticed to have nonobstructive small kidney stone on the right side was seen at urgent care center started on Bactrim on still having the symptoms , also noticed to have fever along with running nose since yesterday Related Data Previous Rx's Medication Instructions Recorded amoxicillin 875 mg-potassium 1 tab PO BID #20 tabs 07/14/20 clavulanate 125 mg tablet (Augmentin) ondansetron HCl 8 mg tablet 8 mg PO Q8H PRN nausea and 07/14/20 vomiting #30 tabs oxycodone-acetaminophen 10 mg-325 1 tab PO Q6H PRN pain #10 tabs 07/14/20 mg tablet (Percocet) amoxicillin 875 mg-potassium 1 tab PO BID #14 tabs 03/10/21 clavulanate 125 mg tablet (Augmentin) benzonatate 100 mg capsule 100 mg PO TID PRN cough #14 caps 03/10/21 (Andrez Singh) ondansetron 4 mg disintegrating 4 mg PO Q8H PRN nausea and 03/10/21 tablet vomiting #7 tabs prednisone 20 mg tablet 40 mg PO DAILY #10 tabs 03/10/21 cyclobenzaprine 10 mg tablet 10 mg PO BEDTIME PRN muscle spasm 05/21/22 #7 tabs lidocaine 5 % topical patch 1 patch topical DAILY PRN pain #15 05/21/22 ea loperamide 2 mg capsule 2 mg PO Q6H PRN loose stool #14 05/21/22 caps omeprazole 20 mg capsule,delayed 20 mg PO DAILY #30 caps 05/21/22 release levofloxacin 500 mg tablet 500 mg PO DAILY 7 days #7 tabs 06/09/22 ondansetron 4 mg disintegrating 4 mg PO Q6-8H PRN nausea and 06/09/22 tablet vomiting #7 tabs phenazopyridine 200 mg tablet 200 mg PO TID 2 days #6 tabs 06/09/22 (Pyridium) Allergies Allergy/AdvReac Type Severity Reaction Status Date / Time No Known Allergies Allergy Verified 08/28/21 01:35 [No Known Allergies*] Review of Systems Review of Systems: Yes all other systems are reviewed and are negative [facility] Past Medical History Medical History Asthma H/O bronchitis Lung granuloma Social History Social History Alcohol intake: never Patient Tobacco Use Status: Never used Tobacco Advance Directives: No Advance Directives Information Provided: Yes Physical Exam Vital Signs: Vital Signs: Last Vital Signs Temp 98.6 F 06/09/22 04:07 Pulse 81 06/09/22 04:07 Resp 18 06/09/22 04:07 BP 109/74 06/09/22 04:07 Pulse Ox 98 06/09/22 04:07 O2 Del Method 06/09/22 04:07 BMI result Body Mass Index 30.6 Appearance: Alert. Oriented X3. No acute distress. Eyes: PERRLA, No Nystagmus ENT: Pharynx normal. Oral Mucosa moist Neck: Normal inspection. Neck supple. CVS: Normal heart rate and rhythm. Pulses normal. Respiratory: No respiratory distress. Equal air entry bilateral, no wheezin g/rales/rhonchi Abdomen: Soft and nontender. Bowel sounds are present, no mass palpable, no CVA tenderness Skin: Skin warm and dry. Normal skin color. Normal skin turgor. Extremities: No lower extremity edema. No calf tenderness Neuro: Oriented X 3. No motor deficit. No sensory deficit.No cerebellar signs , cranial nerves II-XII intact MDM - Female Genitourinary MDM Narrative Medical decision making narrative: Patient with UTI uncomplicated will change antibiotic to Levaquin pending cul ture Lab Data Attestation: I reviewed the patient's lab results. Labs: Lab Results 06/09/22 06/09/22 06/09/22 Range/Units 03:48 03:55 04:35 Urine Color Yellow Urine Appearance Clear Urine pH 7.0 (5.0-9.0) Ur Specific [place] 1.015 (1.005-1.025) Urine Protein Negative (Neg-Trace) mg/dL Urine Glucose (UA) Negative (Negative) mg/dL Urine Ketones Negative (Negative) mg/dL Urine Blood Small (1+) H (Negative) Urine Nitrite Negative (Negative) Ur Leukocyte Esterase Large (3+) H (Negative) Urine RBC 6-10 H (0-2) /HPF Urine WBC >50 H (0-5) /HPF Ur Squamous Epith Cells 0-2 (0-2) /HPF Urine Bacteria None Seen (None Seen) Hyaline Casts 0-2 (0-2) /LPF Urine Test NEGATIVE (NEGATIVE) COVID-19 (JOSE) Negative (Negative) COVID-19 Clin Com See Note Discharge Plan Discharge Clinical Impression: UTI (urinary tract infection) Patient Disposition: Home, Self-Care Instructions: Urinary Tract Infection in Women (ED) Additional Instructions: Drink plenty of fluids Stop Bactrim Start taking Levaquin 1 tablet daily for 7 days Report to the ER if high fever vomiting not feeling better Prescriptions: New levofloxacin 500 mg tablet 500 mg PO DAILY 7 Days Qty: 7 0RF phenazopyridine [Pyridium] 200 mg tablet 200 mg PO TID 2 Days Qty: 6 0RF ondansetron 4 mg tablet,disintegrating 4 mg PO Q6-8H PRN (Reason: nausea and vomiting) Qty: 7 0RF No Action amoxicillin-pot clavulanate [Augmentin] 875-125 mg tablet 1 tab PO BID Qty: 14 0RF ondansetron 4 mg tablet,disintegrating 4 mg PO Q8H PRN (Reason: nausea and vomiting) Qty: 7 0RF prednisone 20 mg tablet 40 mg PO DAILY Qty: 10 0RF benzonatate [Tessalon Perles] 100 mg capsule 100 mg PO TID PRN (Reason: cough) Qty: 14 0RF omeprazole 20 mg capsule,delayed release(DR/EC) 20 mg PO DAILY Qty: 30 0RF cyclobenzaprine 10 mg tablet 10 mg PO BEDTIME PRN (Reason: muscle spasm) Qty: 7 0RF lidocaine 5 % adhesive patch,medicated 1 patch topical DAILY PRN (Reason: pain) Qty: 15 0RF Rx Instructions: leave on most painful area for up to 12 hrs loperamide 2 mg capsule 2 mg PO Q6H PRN (Reason: loose stool) Qty: 14 0RF amoxicillin-pot clavulanate [Augmentin] 875-125 mg tablet 1 tab PO BID Qty: 20 0RF ondansetron HCl 8 mg tablet 8 mg PO Q8H PRN (Reason: nausea and vomiting) Qty: 30 1RF oxycodone-acetaminophen [Percocet] 10-325 mg tablet 1 tab PO Q6H PRN (Reason: pain) Qty: 10 0RF Interventions: ED Discharge Assessment Last Done: 06/09/22 05:03 Discharge Date/Time: 06/09/22 05:04 Print Language: Azeri
[2022-06-09 03:55] LABS: UPreg QC Valid YES; Urine Pregnancy NEGATIVE (NEGATIVE)
[2022-06-09 04:07] VITALS: BP 109/74; PULSE 81; RESP 18; TEMP 37; O2SAT 98
[2022-06-09 04:14] LABS: COVID-19 Test Negative (Negative)
[2022-06-09 04:40] LABS: Appearance Urine Clear; Color Urine Yellow; Glucose Urine UA Negative (Negative); Leukocyte Esterase Urine Large (3+) (Negative); Nitrite Urine Negative (Negative); Specific Gravity - Urine 1.015 (1.005-1.025); UMIC TRIGGER UACC YES; Urine Blood Small (1+) (Negative); Urine Ketones Negative (Negative); Urine Protein Negative (Neg-Trace)
[2022-06-09 04:45] LABS: Bacteria Urine None Seen (None Seen); Hyaline Casts Urine 0-2 /LPF (0-2); Squamous Epithelial Cell Urine 0-2 /HPF (0-2); UACC Culture Trigger YES; WBC Urine >50 /HPF (0-5)
[2022-06-09] MEDS: Ondansetron ODT 4 MG TAB.RAPDIS TRANSLINGU (04:57)
[2022-06-09] MEDS: Phenazopyridine HCL 200 MG TABLET PO (04:57)
[2022-06-09] MEDS: levoFLOXacin 500 MG TABLET PO (04:57)
== END 2022-06-09 05:04 | disposition home or self-care (01) ==
PROVIDERS: Emergency Provider Internal Medicine
DX: R30.0 Dysuria (principal); N39.0 Urinary tract infection, site not specified; Z20.822 Contact with and (suspected) exposure to COVID-19; Z79.899 Other long term (current) drug therapy
CPT/HCPCS: 81001; 81025; 87086; 87088; 87186; 87635; 99283

== ENCOUNTER 2022-07-14 21:09 | Emergency (ER) | payer OTHER, SELFPAY ==
--- NOTE | 2022-07-14 | ECG_ITS ---
Test Reason : CHEST PAIN Blood Pressure : / mmHG Vent. Rate : 080 BPM Atrial Rate : 080 BPM P-R Int : 134 ms QRS Dur : 070 ms QT Int : 358 ms P-R-T Axes : 038 018 038 degrees QTc Int : 412 ms Normal sinus rhythm with sinus arrhythmia Normal ECG When compared with ECG of 23-APR-2021 13:25, No significant change was found Referred By: Generic ED Physician Electronically Signed By:PRECIOUS CHAVARRIA MD
--- NOTE | ~2022-07-14 | XR_ITS ---
EXAMINATION: XR CHEST CLINICAL INFORMATION: Chest pain. Pleuritic chest pain. COMPARISON: CT of the chest 04/23/2021. Chest x-ray 04/23/2021 TECHNIQUE: Frontal view of the chest was obtained. FINDINGS: No significant abnormality is noted involving the heart, lungs, mediastinum, bony thorax or soft tissues. XR/XR chest 1V IMPRESSION: Unremarkable examination.
--- NOTE | ~2022-07-14 | CT_ITS ---
EXAMINATION: CT ANGIOGRAM OF THE CHEST WITH AND WITHOUT CONTRAST (CT PULMONARY ANGIOGRAM FOR PE) CLINICAL INFORMATION: Reason for Exam Pleuritic chest pain and elevated D-dimer COMPARISON: CTA chest 04/23/2021. TECHNIQUE: Prior to contrast administration, noncontrast localization images were obtained. Subsequently, multidetector volumetric imaging was performed from the thoracic inlet to below the diaphragms following the administration of 80 mL Omnipaque 350 intravenous contrast. No contrast reaction reported Sagittal, coronal, and MIP oblique sagittal reformatted images were obtained on the CT workstation, uploaded to PACS, and reviewed. This CT examination was performed using dose optimization techniques as appropriate, variously including the following: *Automated exposure control *Adjustment of mA and/or kV according to patient size (this includes techniques or standardized protocols for targeted exams where dose is matched to indication/reason for exam; i.e. extremities or head) *Use of iterative reconstruction technique Total exam dose-length product 292 mGy-cm FINDINGS: QUALITY OF STUDY/CONTRAST BOLUS: Suboptimal. PULMONARY ARTERIES: Evaluation is limited due to respiratory motion and suboptimal opacification of the pulmonary arteries with attenuation similar when compared to the aorta and pulmonary veins. No large central pulmonary emboli are noted. THORACIC AORTA: No aneurysm or dissection. LUNG: Respiratory motion limits evaluation of the small pulmonary nodules. No pulmonary mass noted. There is mild diffuse bronchial wall thickening. No focal consolidation. No significant groundglass disease. The central airways are patent. PLEURA: No pleural effusion or pneumothorax. MEDIASTINUM: Normal heart size. No pericardial effusion. No hilar or mediastinal lymphadenopathy. No evidence of septal bowing or right heart strain. CHEST WALL/AXILLA: Mildly prominent asymmetric left axillary lymph nodes, for instance measuring 0.8 cm on image 20 and 0.6 cm on image 19, series 6 are increased compared to 04/23/2021. OSSEOUS STRUCTURES: No acute or suspicious osseous abnormality. UPPER ABDOMEN: Hepatic steatosis. No reflux of contrast into the hepatic veins to suggest elevated right heart pressures. CT/CT angio chest PE protocol IMPRESSION: 1. Evaluation is limited due to respiratory motion and suboptimal opacification of the pulmonary arteries. No large central pulmonary emboli are noted. If clinically deemed appropriate, a repeat CTA or evaluation with a V/Q nuclear medicine study could be obtained. 2. Mild diffuse bronchial wall thickening which could be seen with small airways disease. 3. No focal consolidation. 4. Hepatic steatosis. 5. Nonspecific mildly prominent left axillary lymph nodes, increased compared to 04/23/2021. Correlate with physical examination and recent history of vaccination. VTE: indeterminate
[2022-07-14 21:24] VITALS: BP 118/84; PULSE 98; RESP 18; TEMP 36.7; O2SAT 98; BMI 30.6
--- NOTE | 2022-07-14 21:24 | ED.GENADULT ---
HPI - General Adult General Chief complaint: Chest Pain Stated complaint: chest pain, difficulty breathing Time Seen by Provider: 07/14/22 23:36 Related Data Previous Rx's Medication Instructions Recorded amoxicillin 875 mg-potassium 1 tab PO BID #20 tabs 07/14/20 clavulanate 125 mg tablet (Augmentin) ondansetron HCl 8 mg tablet 8 mg PO Q8H PRN nausea and 07/14/20 vomiting #30 tabs oxycodone-acetaminophen 10 mg-325 1 tab PO Q6H PRN pain #10 tabs 07/14/20 mg tablet (Percocet) amoxicillin 875 mg-potassium 1 tab PO BID #14 tabs 03/10/21 clavulanate 125 mg tablet (Augmentin) benzonatate 100 mg capsule 100 mg PO TID PRN cough #14 caps 03/10/21 (Andrez Singh) ondansetron 4 mg disintegrating 4 mg PO Q8H PRN nausea and 03/10/21 tablet vomiting #7 tabs prednisone 20 mg tablet 40 mg PO DAILY #10 tabs 03/10/21 cyclobenzaprine 10 mg tablet 10 mg PO BEDTIME PRN muscle spasm 05/21/22 #7 tabs lidocaine 5 % topical patch 1 patch topical DAILY PRN pain #15 05/21/22 ea loperamide 2 mg capsule 2 mg PO Q6H PRN loose stool #14 05/21/22 caps omeprazole 20 mg capsule,delayed 20 mg PO DAILY #30 caps 05/21/22 release levofloxacin 500 mg tablet 500 mg PO DAILY 7 days #7 tabs 06/09/22 ondansetron 4 mg disintegrating 4 mg PO Q6-8H PRN nausea and 06/09/22 tablet vomiting #7 tabs phenazopyridine 200 mg tablet 200 mg PO TID 2 days #6 tabs 06/09/22 (Pyridium) prednisone 20 mg tablet 20 mg PO BID #10 tabs 07/14/22 albuterol sulfate 90 mcg/actuation 1 inh inhalation QID PRN shortness 07/15/22 aerosol inhaler of breath or wheezing #8.5 grams Allergies Allergy/AdvReac Type Severity Reaction Status Date / Time No Known Allergies Allergy Verified 08/28/21 01:35 [No Known Allergies*] [facility] Past Medical History Medical History Asthma H/O bronchitis Lung granuloma Social History Social History Alcohol intake: never Patient Tobacco Use Status: Never used Tobacco Advance Directives: No Physical Exam ED Vital Signs: Vital Signs - 24 hr 07/14/22 23:57 07/15/22 00:39 07/15/22 02:31 Temperature 98.3 F 97.6 F Pulse Rate 80 86 106 H Respiratory Rate 12 16 20 Blood Pressure 150/84 H 108/62 Pulse Oximetry 100 96 Oxygen Delivery Method Room Air Room Air 07/15/22 03:34 Temperature Pulse Rate 89 Respiratory Rate 14 Blood Pressure 121/68 Pulse Oximetry 96 Oxygen Delivery Method Room Air BMI result Body Mass Index 30.6 Course Course Course Narrative: Triage BUCK -c/o stabbing CP, sob, pain is constand, non radiating, but much worse with deep breaths, has been coughing quite a bit, hx of recent exposure to RSV, pt's daughter tested + -PM asthma -03/14 pain with inspiration -PE: clear lung sounds, no wheezing, HR in the 90s , S1S2, no murmurs Medications Administered Discontinued Medications Generic Name Dose Route Start Last Admin Trade Name Freq PRN Reason Stop Dose Admin Albuterol/Ipratropium 3 ml 07/14/22 23:46 07/15/22 00:37 Albuterol/Iprat 2.5/0.5mg 3 Ml Ampul.Neb INHALE 07/14/22 23:47 3 ml ONCE ONE Administration Sodium Chloride 1,000 mls @ 999 mls/hr 07/15/22 00:11 07/15/22 00:36 Ns IV 07/15/22 01:11 999 mls/hr .Q1H1M ONE Administration Ibuprofen 600 mg 07/14/22 23:45 07/15/22 00:20 Ibuprofen 800 Mg Tablet PO 07/14/22 23:46 600 mg ONCE ONE Administration Iohexol 65 ml 07/15/22 01:48 07/15/22 01:48 Iohexol 350 Mg/Ml 100 Ml Infus..Btl IV 07/15/22 01:49 65 ml ONCE ONE Administration Prednisone 40 mg 07/14/22 23:45 11/10/22 00:20 Prednisone 20 Mg Tablet PO 07/14/22 23:46 40 mg ONCE ONE Administration Medical Decision Making Lab Data Result diagrams: 07/14/22 21:43 07/14/22 21:43 Labs: Lab Results 07/14/22 07/14/22 07/14/22 Range/Units 21:43 21:43 21:43 WBC 9.2 (4.8-10.8) X10*3/uL RBC 4.42 (4.20-5.50) X10*6/uL Hgb 13.2 (12.0-16.0) g/dl Hct 39.8 (37.0-47.0) % MCV 90.0 (80.0-98.0) fL MCH 29.9 (27.0-33.0) pg MCHC 33.2 (31.0-35.0) g/dl RDW 11.8 (11.0-16.0) % Plt Count 226 (160-400) X10*3/uL MPV 9.7 (9.4-12.3) fL Immature Gran % (Auto) 0.3 (0.0-0.4) % Neut % (Auto) 45.2 (45-73) % Lymph % (Auto) 37.0 (20-40) % [place] % (Auto) 8.6 (2-11) % Eos % (Auto) 8.4 H (0-4) % Baso % (Auto) 0.5 (0-2) % Lymph # (Auto) 3.4 (1.2-4.9) X10*3/uL [place] # (Auto) 0.8 (0.1-1.2) X10*3/uL Eos # (Auto) 0.8 H (0.0-0.4) X10*3/uL Baso # (Auto) 0.1 (0.0-0.2) X10*3/uL Abs Immat Gran (auto) 0.03 (0.00-0.03) X10*3/uL Absolute Neuts (auto) 4.1 (2.0-8.3) x10*3/uL Absolute Nucleated RBC 0.000 (0.0-0.012) X10*3/uL Nucleated RBC % (auto) 0.0 (0.0-0.2) /100WBC D-Dimer High Sensitivty NG/ML Sodium 139 (135-145) mmol/L Potassium 4.4 (3.3-5.1) mmol/L Chloride 107 (96-108) mmol/L Carbon Dioxide 19 L (22-29) mmol/L Anion Gap 17 (12-20) BUN 9 (9-16) mg/dL Creatinine 0.81 (0.5-1.4) mg/dL Estim Creat Clear Calc 89.7 Estimated GFR > 60 Random Glucose 105 (60-115) mg/dL Calcium 9.0 D (8.4-10.2) mg/dL Total Bilirubin 0.6 (0.0-1.0) mg/dL Direct Bilirubin 0.2 (0.0-0.5) mg/dL AST 18 (5-31) U/L ALT 16 (0-31) U/L Alkaline Phosphatase 62 (39-117) U/L Troponin I High Sens < 3.5 (<3.5-17.0) ng/L B-Natriuretic Peptide (<100) pg/mL Total Protein 7.4 (6.5-8.0) g/dL Albumin 4.4 (3.5-5.0) g/dL Beta HCG, Quant mIU/mL Influenza Type A (PCR) (Negative) Influenza Type B (PCR) (Negative) RSV RNA Qual (PCR) (Negative) SARS-CoV-2 RNA (RT-PCR) (Negative) 07/14/22 07/14/22 07/14/22 Range/Units 21:43 21:43 23:46 WBC (4.8-10.8) X10*3/uL RBC (4.20-5.50) X10*6/uL Hgb (12.0-16.0) g/dl Hct (37.0-47.0) % MCV (80.0-98.0) fL MCH (27.0-33.0) pg MCHC (31.0-35.0) g/dl RDW (11.0-16.0) % Plt Count (160-400) X10*3/uL MPV (9.4-12.3) fL Immature Gran % (Auto) (0.0-0.4) % Neut % (Auto) (45-73) % Lymph % (Auto) (20-40) % [place] % (Auto) (2-11) % Eos % (Auto) (0-4) % Baso % (Auto) (0-2) % Lymph # (Auto) (1.2-4.9) X10*3/uL [place] # (Auto) (0.1-1.2) X10*3/uL Eos # (Auto) (0.0-0.4) X10*3/uL Baso # (Auto) (0.0-0.2) X10*3/uL Abs Immat Gran (auto) (0.00-0.03) X10*3/uL Absolute Neuts (auto) (2.0-8.3) x10*3/uL Absolute Nucleated RBC (0.0-0.012) X10*3/uL Nucleated RBC % (auto) (0.0-0.2) /100WBC D-Dimer High Sensitivty 282 NG/ML Sodium (135-145) mmol/L Potassium (3.3-5.1) mmol/L Chloride (96-108) mmol/L Carbon Dioxide (22-29) mmol/L Anion Gap (12-20) BUN (9-16) mg/dL Creatinine (0.5-1.4) mg/dL Estim Creat Clear Calc Estimated GFR Random Glucose (60-115) mg/dL Calcium (8.4-10.2) mg/dL Total Bilirubin (0.0-1.0) mg/dL Direct Bilirubin (0.0-0.5) mg/dL AST (5-31) U/L ALT (0-31) U/L Alkaline Phosphatase (39-117) U/L Troponin I High Sens (<3.5-17.0) ng/L B-Natriuretic Peptide 23 (<100) pg/mL Total Protein (6.5-8.0) g/dL Albumin (3.5-5.0) g/dL Beta HCG, Quant < 2 mIU/mL Influenza Type A (PCR) (Negative) Influenza Type B (PCR) (Negative) RSV RNA Qual (PCR) (Negative) SARS-CoV-2 RNA (RT-PCR) (Negative) 07/14/22 Range/Units 23:52 WBC (4.8-10.8) X10*3/uL RBC (4.20-5.50) X10*6/uL Hgb (12.0-16.0) g/dl Hct (37.0-47.0) % MCV (80.0-98.0) fL MCH (27.0-33.0) pg MCHC (31.0-35.0) g/dl RDW (11.0-16.0) % Plt Count (160-400) X10*3/uL MPV (9.4-12.3) fL Immature Gran % (Auto) (0.0-0.4) % Neut % (Auto) (45-73) % Lymph % (Auto) (20-40) % [place] % (Auto) (2-11) % Eos % (Auto) (0-4) % Baso % (Auto) (0-2) % Lymph # (Auto) (1.2-4.9) X10*3/uL [place] # (Auto) (0.1-1.2) X10*3/uL Eos # (Auto) (0.0-0.4) X10*3/uL Baso # (Auto) (0.0-0.2) X10*3/uL Abs Immat Gran (auto) (0.00-0.03) X10*3/uL Absolute Neuts (auto) (2.0-8.3) x10*3/uL Absolute Nucleated RBC (0.0-0.012) X10*3/uL Nucleated RBC % (auto) (0.0-0.2) /100WBC D-Dimer High Sensitivty NG/ML Sodium (135-145) mmol/L Potassium (3.3-5.1) mmol/L Chloride (96-108) mmol/L Carbon Dioxide (22-29) mmol/L Anion Gap (12-20) BUN (9-16) mg/dL Creatinine (0.5-1.4) mg/dL Estim Creat Clear Calc Estimated GFR Random Glucose (60-115) mg/dL Calcium (8.4-10.2) mg/dL Total Bilirubin (0.0-1.0) mg/dL Direct Bilirubin (0.0-0.5) mg/dL AST (5-31) U/L ALT (0-31) U/L Alkaline Phosphatase (39-117) U/L Troponin I High Sens (<3.5-17.0) ng/L B-Natriuretic Peptide (<100) pg/mL Total Protein (6.5-8.0) g/dL Albumin (3.5-5.0) g/dL Beta HCG, Quant mIU/mL Influenza Type A (PCR) NEGATIVE (Negative) Influenza Type B (PCR) NEGATIVE (Negative) RSV RNA Qual (PCR) POSITIVE A (Negative) SARS-CoV-2 RNA (RT-PCR) NEGATIVE (Negative) Discharge Plan Discharge Clinical Impression: Pleurisy, Respiratory syncytial virus (RSV) Patient Disposition: Home, Self-Care Instructions: Pleurisy (ED) Prescriptions: New prednisone 20 mg tablet 20 mg PO BID Qty: 10 0RF albuterol sulfate 90 mcg/actuation HFA aerosol inhaler 1 inh inhalation QID PRN (Reason: shortness of breath or wheezing) Qty: 8.5 0RF No Action amoxicillin-pot clavulanate [Augmentin] 875-125 mg tablet 1 tab PO BID Qty: 14 0RF ondansetron 4 mg tablet,disintegrating 4 mg PO Q8H PRN (Reason: nausea and vomiting) Qty: 7 0RF prednisone 20 mg tablet 40 mg PO DAILY Qty: 10 0RF benzonatate [Tessalon Perles] 100 mg capsule 100 mg PO TID PRN (Reason: cough) Qty: 14 0RF levofloxacin 500 mg tablet 500 mg PO DAILY 7 Days Qty: 7 0RF phenazopyridine [Pyridium] 200 mg tablet 200 mg PO TID 2 Days Qty: 6 0RF ondansetron 4 mg tablet,disintegrating 4 mg PO Q6-8H PRN (Reason: nausea and vomiting) Qty: 7 0RF omeprazole 20 mg capsule,delayed release(DR/EC) 20 mg PO DAILY Qty: 30 0RF cyclobenzaprine 10 mg tablet 10 mg PO BEDTIME PRN (Reason: muscle spasm) Qty: 7 0RF lidocaine 5 % adhesive patch,medicated 1 patch topical DAILY PRN (Reason: pain) Qty: 15 0RF Rx Instructions: leave on most painful area for up to 12 hrs loperamide 2 mg capsule 2 mg PO Q6H PRN (Reason: loose stool) Qty: 14 0RF amoxicillin-pot clavulanate [Augmentin] 875-125 mg tablet 1 tab PO BID Qty: 20 0RF ondansetron HCl 8 mg tablet 8 mg PO Q8H PRN (Reason: nausea and vomiting) Qty: 30 1RF oxycodone-acetaminophen [Percocet] 10-325 mg tablet 1 tab PO Q6H PRN (Reason: pain) Qty: 10 0RF Referrals: Physician,None [Primary Care Provider] - Stand Alone Forms: Work/School Release Interventions: ED Discharge Assessment Last Done: 07/15/22 03:35 Discharge Date/Time: 07/15/22 03:35
[2022-07-14 21:49] LABS: MANUAL DIFF FLAG NO
[2022-07-14 21:51] LABS: Basophils Absolute Auto 0.1 X10*3/uL (0.0-0.2); Basophils Percent Auto 0.5 % (0-2); Eosinophils Absolute Auto 0.8 X10*3/uL (0.0-0.4); Eosinophils Percent Auto 8.4 % (0-4); Hematocrit 39.8 % (37.0-47.0); Hemoglobin 13.2 g/dl (12.0-16.0); Imm Gran Abs Auto 0.03 X10*3/uL (0.00-0.03); Imm Gran Pct Auto 0.3 % (0.0-0.4); Lymphocytes Absolute Auto 3.4 X10*3/uL (1.2-4.9); Mean Corpuscular HGB Conc 33.2 g/dl (31.0-35.0); Mean Corpuscular Hemoglobin 29.9 pg (27.0-33.0); Mean Platelet Volume 9.7 fL (9.4-12.3); Monocytes Absolute Auto 0.8 X10*3/uL (0.1-1.2); Monocytes Percent Auto 8.6 % (2-11); Neutrophils Absolute Auto 4.1 x10*3/uL (2.0-8.3); Neutrophils Percent Auto 45.2 % (45-73); Platelet Count 226 X10*3/uL (160-400); Red Blood Count 4.42 X10*6/uL (4.20-5.50); Red Cell Distribution Width 11.8 % (11.0-16.0); White Blood Count 9.2 X10*3/uL (4.8-10.8)
[2022-07-14 22:10] LABS: Alanine Aminotransferase 16 U/L (0-31); Albumin Level 4.4 g/dL (3.5-5.0); Alkaline Phosphatase 62 U/L (39-117); Anion Gap 17 (12-20); Aspartate Amino Transferase 18 U/L (5-31); Bilirubin Direct 0.2 mg/dL (0.0-0.5); Bilirubin Total 0.6 mg/dL (0.0-1.0); Blood Urea Nitrogen 9 mg/dL (9-16); Carbon Dioxide 19 mmol/L (22-29); Chloride 107 mmol/L (96-108); Creatinine Clr Calc Pharmacy 89.7; Estimated Glomerular Filt Rate > 60; Glucose Random 105 mg/dL (60-115); Potassium 4.4 mmol/L (3.3-5.1); Sodium 139 mmol/L (135-145); Total Protein 7.4 g/dL (6.5-8.0)
[2022-07-14 22:16] LABS: B Type Natriuretic Peptide 23 pg/mL (<100); Troponin-I High Sensitivity < 3.5 ng/L (<3.5-17.0)
[2022-07-14 22:21] LABS: HCG Quantitative < 2 mIU/mL
--- NOTE | 2022-07-14 23:45 | ED.CHESTPAIN ---
HPI - Chest Pain General Chief Complaint: Chest Pain Stated Complaint: chest pain, difficulty breathing Time Seen by Provider: 07/14/22 23:36 Source: patient Mode of arrival: ambulatory Limitations: no limitations History of Present Illness HPI narrative: 36-year-old female came in for evaluation left-sided chest pain. Patient has been coughing, with difficulty breathing and flu-like symptoms for the past 3 days patient's daughter diagnosed with RSV, pain is the whole anti left side, worsening with taking a deep breath also was expiration, also get worse with coughing, nothing relieves the pain, patient was taking ibuprofen for the past couple days which is not relieving the pain, patient declined any recent travel, no lower extremity swelling or tenderness, no history of DVT or PE, no fever, no chills, no abdominal pain. Related Data Previous Rx's Medication Instructions Recorded amoxicillin 875 mg-potassium 1 tab PO BID #20 tabs 07/14/20 clavulanate 125 mg tablet (Augmentin) ondansetron HCl 8 mg tablet 8 mg PO Q8H PRN nausea and 07/14/20 vomiting #30 tabs oxycodone-acetaminophen 10 mg-325 1 tab PO Q6H PRN pain #10 tabs 07/14/20 mg tablet (Percocet) amoxicillin 875 mg-potassium 1 tab PO BID #14 tabs 03/10/21 clavulanate 125 mg tablet (Augmentin) benzonatate 100 mg capsule 100 mg PO TID PRN cough #14 caps 03/10/21 (Andrez Singh) ondansetron 4 mg disintegrating 4 mg PO Q8H PRN nausea and 03/10/21 tablet vomiting #7 tabs prednisone 20 mg tablet 40 mg PO DAILY #10 tabs 03/10/21 cyclobenzaprine 10 mg tablet 10 mg PO BEDTIME PRN muscle spasm 05/21/22 #7 tabs lidocaine 5 % topical patch 1 patch topical DAILY PRN pain #15 05/21/22 ea loperamide 2 mg capsule 2 mg PO Q6H PRN loose stool #14 05/21/22 caps omeprazole 20 mg capsule,delayed 20 mg PO DAILY #30 caps 05/21/22 release levofloxacin 500 mg tablet 500 mg PO DAILY 7 days #7 tabs 06/09/22 ondansetron 4 mg disintegrating 4 mg PO Q6-8H PRN nausea and 10/05/22 tablet vomiting #7 tabs phenazopyridine 200 mg tablet 200 mg PO TID 2 days #6 tabs 06/09/22 (Pyridium) prednisone 20 mg tablet 20 mg PO BID #10 tabs 07/14/22 albuterol sulfate 90 mcg/actuation 1 inh inhalation QID PRN shortness 07/15/22 aerosol inhaler of breath or wheezing #8.5 grams Allergies Allergy/AdvReac Type Severity Reaction Status Date / Time No Known Allergies Allergy Verified 08/28/21 01:35 [No Known Allergies*] Review of Systems Review of Systems: All other systems are reviewed and are negative Constitutional: Reports as per HPI and Reports no additional constitutional complaints Eyes: Reports as per HPI and Reports no additional eye complaints Reports system reviewed and no additional complaints, except as documented Cardiovascular: Reports as per HPI and Reports no additional cardiovascular complaints Respiratory: Reports as per HPI and Reports no additional respiratory complaints Gastrointestinal: Reports as per HPI and Reports no additional gastrointestinal complaints Genitourinary: Reports no additional female genitourinary complaints Musculoskeletal: Reports no additional musculoskeletal complaints Skin/Breast: Reports system reviewed and no additional complaints, except as docu Psychiatric: Reports no additional psychiatric complaints Endocrine: Reports no additional endocrine complaints Hematologic/Lymphatic: Reports no additional hematologic/lymphatic complaints Allergic/Immunologic: Reports no additional allergic/immunologic complaints Reports system reviewed and no additional complaints, except as documented and Reports Abnormal speech present [facility] Past Medical History Medical History Asthma H/O bronchitis Lung granuloma Social History Social History Alcohol intake: never Patient Tobacco Use Status: Never used Tobacco Advance Directives: No Physical Exam Vital Signs: Vital Signs: Last Vital Signs Temp 97.6 F 07/15/22 02:31 Pulse 106 H 07/15/22 02:31 Resp 20 07/15/22 02:31 BP 108/62 07/15/22 02:31 Pulse Ox 96 07/15/22 02:31 O2 Del Method 07/15/22 02:31 BMI result Body Mass Index 30.6 Vital signs have been reviewed as appeared to be correct. Blood pressure normal. Heart rate normal. Respiration rate normal. Temperature normal. Oxygen saturation normal. Appearance: Alert. Oriented X3. No acute distress. Head: Normal external exam. Normocephalic. Atraumatic. No Swain signs noted. No raccoon eyes noted Eyes: PERRLA. EOMI. Conjunctiva and sclera normal. Eyelids normal. ENT: TM's Normal. Pharynx normal. Uvula midline. Moist mucous membranes. No trismus noted. No drooling noted. No muffled voice noted. Neck: Normal inspection. Neck supple. FROM. No adenopathy. Thyroid Normal. No meningeal signs. No neck mass noted. CVS: Normal heart rate and rhythm. Heart sound normal. No murmurs noted. Pulses normal throughout. Respiratory: No respiratory distress. Painless inspiration. Breath sounds normal. No wheezes/rales/rhonchi noted. Chest nontender. No accessory muscle usage noted or decreased air movement noted. Abdomen: Soft and nontender. Bowel sounds normal in all 4 quadrants. No distention noted. No organomegaly noted. No visible injury noted. Back: No CVA tenderness. Full range of motion noted. Skin: Skin warm and dry. Normal skin color. Normal skin turgor. No rashes/lesions/lacerations noted. Extremities: No lower extremity edema. Extremities exhibit normal range of motion. Extremities nontender. Neuro: Oriented X 3. Cranial nerve exam: II-XII are grossly intact No motor deficit. No sensory deficit. Reflexes normal. Course Course Course Narrative: 36-year-old female was exposed to infected family member with RSV, patient tested positive for RSV and now was presented with pleurisy. Patient had elevated D-dimer negative CT angiogram of the chest for PE. Medications Administered Discontinued Medications Generic Name Dose Route Start Last Admin Trade Name Freq PRN Reason Stop Dose Admin Albuterol/Ipratropium 3 ml 07/14/22 23:46 07/15/22 00:37 Albuterol/Iprat 2.5/0.5mg 3 Ml Ampul.Neb INHALE 07/14/22 23:47 3 ml ONCE ONE Administration Sodium Chloride 1,000 mls @ 999 mls/hr 07/15/22 00:11 07/15/22 00:36 Ns IV 07/15/22 01:11 999 mls/hr .Q1H1M ONE Administration Ibuprofen 600 mg 07/14/22 23:45 07/15/22 00:20 Ibuprofen 800 Mg Tablet PO 07/14/22 23:46 600 mg ONCE ONE Administration Iohexol 65 ml 07/15/22 01:48 07/15/22 01:48 Iohexol 350 Mg/Ml 100 Ml Infus..Btl IV 07/15/22 01:49 65 ml ONCE ONE Administration Prednisone 40 mg 07/14/22 23:45 07/15/22 00:20 Prednisone 20 Mg Tablet PO 07/14/22 23:46 40 mg ONCE ONE Administration MDM - Chest Pain Medical Records Data Attestation: I reviewed the patient's medical records. Lab Data Attestation: I reviewed the patient's lab results. Result diagrams: 07/14/22 21:43 07/14/22 21:43 Labs: Lab Results 07/14/22 07/14/22 07/14/22 Range/Units 21:43 21:43 21:43 WBC 9.2 (4.8-10.8) X10*3/uL RBC 4.42 (4.20-5.50) X10*6/uL Hgb 13.2 (12.0-16.0) g/dl Hct 39.8 (37.0-47.0) % MCV 90.0 (80.0-98.0) fL MCH 29.9 (27.0-33.0) pg MCHC 33.2 (31.0-35.0) g/dl RDW 11.8 (11.0-16.0) % Plt Count 226 (160-400) X10*3/uL MPV 9.7 (9.4-12.3) fL Immature Gran % (Auto) 0.3 (0.0-0.4) % Neut % (Auto) 45.2 (45-73) % Lymph % (Auto) 37.0 (20-40) % [place] % (Auto) 8.6 (2-11) % Eos % (Auto) 8.4 H (0-4) % Baso % (Auto) 0.5 (0-2) % Lymph # (Auto) 3.4 (1.2-4.9) X10*3/uL [place] # (Auto) 0.8 (0.1-1.2) X10*3/uL Eos # (Auto) 0.8 H (0.0-0.4) X10*3/uL Baso # (Auto) 0.1 (0.0-0.2) X10*3/uL Abs Immat Gran (auto) 0.03 (0.00-0.03) X10*3/uL Absolute Neuts (auto) 4.1 (2.0-8.3) x10*3/uL Absolute Nucleated RBC 0.000 (0.0-0.012) X10*3/uL Nucleated RBC % (auto) 0.0 (0.0-0.2) /100WBC D-Dimer High Sensitivty NG/ML Sodium 139 (135-145) mmol/L Potassium 4.4 (3.3-5.1) mmol/L Chloride 107 (96-108) mmol/L Carbon Dioxide 19 L (22-29) mmol/L Anion Gap 17 (12-20) BUN 9 (9-16) mg/dL Creatinine 0.81 (0.5-1.4) mg/dL Estim Creat Clear Calc 89.7 Estimated GFR > 60 Random Glucose 105 (60-115) mg/dL Calcium 9.0 D (8.4-10.2) mg/dL Total Bilirubin 0.6 (0.0-1.0) mg/dL Direct Bilirubin 0.2 (0.0-0.5) mg/dL AST 18 (5-31) U/L ALT 16 (0-31) U/L Alkaline Phosphatase 62 (39-117) U/L Troponin I High Sens < 3.5 (<3.5-17.0) ng/L B-Natriuretic Peptide (<100) pg/mL Total Protein 7.4 (6.5-8.0) g/dL Albumin 4.4 (3.5-5.0) g/dL Beta HCG, Quant mIU/mL Influenza Type A (PCR) (Negative) Influenza Type B (PCR) (Negative) RSV RNA Qual (PCR) (Negative) SARS-CoV-2 RNA (RT-PCR) (Negative) 07/14/22 07/14/22 07/14/22 Range/Units 21:43 21:43 23:46 WBC (4.8-10.8) X10*3/uL RBC (4.20-5.50) X10*6/uL Hgb (12.0-16.0) g/dl Hct (37.0-47.0) % MCV (80.0-98.0) fL MCH (27.0-33.0) pg MCHC (31.0-35.0) g/dl RDW (11.0-16.0) % Plt Count (160-400) X10*3/uL MPV (9.4-12.3) fL Immature Gran % (Auto) (0.0-0.4) % Neut % (Auto) (45-73) % Lymph % (Auto) (20-40) % [place] % (Auto) (2-11) % Eos % (Auto) (0-4) % Baso % (Auto) (0-2) % Lymph # (Auto) (1.2-4.9) X10*3/uL [place] # (Auto) (0.1-1.2) X10*3/uL Eos # (Auto) (0.0-0.4) X10*3/uL Baso # (Auto) (0.0-0.2) X10*3/uL Abs Immat Gran (auto) (0.00-0.03) X10*3/uL Absolute Neuts (auto) (2.0-8.3) x10*3/uL Absolute Nucleated RBC (0.0-0.012) X10*3/uL Nucleated RBC % (auto) (0.0-0.2) /100WBC D-Dimer High Sensitivty 282 NG/ML Sodium (135-145) mmol/L Potassium (3.3-5.1) mmol/L Chloride (96-108) mmol/L Carbon Dioxide (22-29) mmol/L Anion Gap (12-20) BUN (9-16) mg/dL Creatinine (0.5-1.4) mg/dL Estim Creat Clear Calc Estimated GFR Random Glucose (60-115) mg/dL Calcium (8.4-10.2) mg/dL Total Bilirubin (0.0-1.0) mg/dL Direct Bilirubin (0.0-0.5) mg/dL AST (5-31) U/L ALT (0-31) U/L Alkaline Phosphatase (39-117) U/L Troponin I High Sens (<3.5-17.0) ng/L B-Natriuretic Peptide 23 (<100) pg/mL Total Protein (6.5-8.0) g/dL Albumin (3.5-5.0) g/dL Beta HCG, Quant < 2 mIU/mL Influenza Type A (PCR) (Negative) Influenza Type B (PCR) (Negative) RSV RNA Qual (PCR) (Negative) SARS-CoV-2 RNA (RT-PCR) (Negative) 07/14/22 Range/Units 23:52 WBC (4.8-10.8) X10*3/uL RBC (4.20-5.50) X10*6/uL Hgb (12.0-16.0) g/dl Hct (37.0-47.0) % MCV (80.0-98.0) fL MCH (27.0-33.0) pg MCHC (31.0-35.0) g/dl RDW (11.0-16.0) % Plt Count (160-400) X10*3/uL MPV (9.4-12.3) fL Immature Gran % (Auto) (0.0-0.4) % Neut % (Auto) (45-73) % Lymph % (Auto) (20-40) % [place] % (Auto) (2-11) % Eos % (Auto) (0-4) % Baso % (Auto) (0-2) % Lymph # (Auto) (1.2-4.9) X10*3/uL [place] # (Auto) (0.1-1.2) X10*3/uL Eos # (Auto) (0.0-0.4) X10*3/uL Baso # (Auto) (0.0-0.2) X10*3/uL Abs Immat Gran (auto) (0.00-0.03) X10*3/uL Absolute Neuts (auto) (2.0-8.3) x10*3/uL Absolute Nucleated RBC (0.0-0.012) X10*3/uL Nucleated RBC % (auto) (0.0-0.2) /100WBC D-Dimer High Sensitivty NG/ML Sodium (135-145) mmol/L Potassium (3.3-5.1) mmol/L Chloride (96-108) mmol/L Carbon Dioxide (22-29) mmol/L Anion Gap (12-20) BUN (9-16) mg/dL Creatinine (0.5-1.4) mg/dL Estim Creat Clear Calc Estimated GFR Random Glucose (60-115) mg/dL Calcium (8.4-10.2) mg/dL Total Bilirubin (0.0-1.0) mg/dL Direct Bilirubin (0.0-0.5) mg/dL AST (5-31) U/L ALT (0-31) U/L Alkaline Phosphatase (39-117) U/L Troponin I High Sens (<3.5-17.0) ng/L B-Natriuretic Peptide (<100) pg/mL Total Protein (6.5-8.0) g/dL Albumin (3.5-5.0) g/dL Beta HCG, Quant mIU/mL Influenza Type A (PCR) NEGATIVE (Negative) Influenza Type B (PCR) NEGATIVE (Negative) RSV RNA Qual (PCR) POSITIVE A (Negative) SARS-CoV-2 RNA (RT-PCR) NEGATIVE (Negative) Imaging Data Chest x-ray: Attestation: I personally reviewed and interpreted this imaging study as follows: Radiologist's impression: No acute pathology. Chest CTA: Attestation: I personally reviewed and interpreted this imaging study as follows: Radiologist's impression: 1.? Evaluation is limited due to respiratory motion and suboptimal opacification of the pulmonary arteries. No large central pulmonary emboli are noted. If clinically deemed appropriate, a repeat CTA or evaluation with a V/Q nuclear medicine study could be obtained. 2.? Mild diffuse bronchial wall thickening which could be seen with small airways disease. 3.? No focal consolidation. 4.? Hepatic steatosis. 5.? Nonspecific mildly prominent left axillary lymph nodes, increased compared to 04/23/2021. Correlate with physical examination and recent history of vaccination. ? ECG Data ECG #1: Attestation: I personally reviewed and interpreted this ECG as follows: Interpretation: Normal sinus rhythm with sinus arrhythmia at 80 beats per minute, normal axis deviation, normal intervals, no change from previous EKG. Discharge Plan Discharge Clinical Impression: Pleurisy, Respiratory syncytial virus (RSV) Patient Disposition: Home, Self-Care Instructions: Pleurisy (ED) Prescriptions: New prednisone 20 mg tablet 20 mg PO BID Qty: 10 0RF albuterol sulfate 90 mcg/actuation HFA aerosol inhaler 1 inh inhalation QID PRN (Reason: shortness of breath or wheezing) Qty: 8.5 0RF No Action amoxicillin-pot clavulanate [Augmentin] 875-125 mg tablet 1 tab PO BID Qty: 14 0RF ondansetron 4 mg tablet,disintegrating 4 mg PO Q8H PRN (Reason: nausea and vomiting) Qty: 7 0RF prednisone 20 mg tablet 40 mg PO DAILY Qty: 10 0RF benzonatate [Tessalon Perles] 100 mg capsule 100 mg PO TID PRN (Reason: cough) Qty: 14 0RF levofloxacin 500 mg tablet 500 mg PO DAILY 7 Days Qty: 7 0RF phenazopyridine [Pyridium] 200 mg tablet 200 mg PO TID 2 Days Qty: 6 0RF ondansetron 4 mg tablet,disintegrating 4 mg PO Q6-8H PRN (Reason: nausea and vomiting) Qty: 7 0RF omeprazole 20 mg capsule,delayed release(DR/EC) 20 mg PO DAILY Qty: 30 0RF cyclobenzaprine 10 mg tablet 10 mg PO BEDTIME PRN (Reason: muscle spasm) Qty: 7 0RF lidocaine 5 % adhesive patch,medicated 1 patch topical DAILY PRN (Reason: pain) Qty: 15 0RF Rx Instructions: leave on most painful area for up to 12 hrs loperamide 2 mg capsule 2 mg PO Q6H PRN (Reason: loose stool) Qty: 14 0RF amoxicillin-pot clavulanate [Augmentin] 875-125 mg tablet 1 tab PO BID Qty: 20 0RF ondansetron HCl 8 mg tablet 8 mg PO Q8H PRN (Reason: nausea and vomiting) Qty: 30 1RF oxycodone-acetaminophen [Percocet] 10-325 mg tablet 1 tab PO Q6H PRN (Reason: pain) Qty: 10 0RF Referrals: Physician,None [Primary Care Provider] - Stand Alone Forms: Work/School Release
[2022-07-14 23:57] VITALS: BP 150/84; PULSE 80; RESP 12; TEMP 36.8; O2SAT 100
[2022-07-15 00:03] LABS: D Dimer High Sensitivity 282 NG/ML
[2022-07-15] MEDS: Ibuprofen 800 MG TABLET 600 MG PO (00:20)
[2022-07-15] MEDS: predniSONE 20 MG TABLET 40 MG PO (00:20)
[2022-07-15 00:34] LABS: Influenza A PCR NEGATIVE (Negative); Influenza B PCR NEGATIVE (Negative); Resp Syncy Virus RNA Qual PCR POSITIVE (Negative); SARS COV2 PCR INHOUSE NEGATIVE (Negative)
[2022-07-15] MEDS: 0.9 % Sodium Chloride 1,000 ML 999 ML IV (00:36)
[2022-07-15] MEDS: Albuterol/Iprat 2.5/0.5MG 3 ML AMPUL.NEB INHALE (00:37)
[2022-07-15 00:39] VITALS: PULSE 86; RESP 16; O2SAT 100
[2022-07-15] MEDS: iohexoL 350 MG/ML 100 ML INFUS..BTL 65 ML IV (01:48)
[2022-07-15 02:31] VITALS: BP 108/62; PULSE 106; RESP 20; TEMP 36.4; O2SAT 96
[2022-07-15 03:34] VITALS: BP 121/68; PULSE 89; RESP 14; O2SAT 96
== END 2022-07-15 03:35 | disposition home or self-care (01) ==
PROVIDERS: Emergency Medicine; Emergency Provider Emergency Medicine
DX: J06.9 Acute upper respiratory infection, unspecified (principal); B97.4 Respiratory syncytial virus as the cause of diseases classified elsewhere; R09.1 Pleurisy; R06.02 Shortness of breath; R07.89 Other chest pain; R05.9 Cough, unspecified; Z20.822 Contact with and (suspected) exposure to COVID-19; Z79.899 Other long term (current) drug therapy
CPT/HCPCS: 0241U; 36415; 71045; 71275; 80048; 80076; 83880; 84484; 84702; 85025; 85379; 93005; 94640; 99284; 99285; Q9967

== ENCOUNTER 2022-09-09 12:00 | Emergency (ER) | payer OTHER, SELFPAY ==
--- NOTE | ~2022-09-09 | US_ITS ---
EXAMINATION: US OBSTETRICAL ULTRASOUND CLINICAL INFORMATION: Spotting. Positive test COMPARISON: None. LMP: Unknown. TECHNIQUE: OB ultrasound FINDINGS: Uterus measures approximately 10.2 x 3.9 x 5.6 cm in size without evidence of an intrauterine . No gestational sac is appreciated. Endometrium measures 8 mm in diameter. MATERNAL ADNEXA: The right maternal ovary measures 2.6 x 1.6 x 1.7 cm. There is a 1.2 x 0.9 x 1.0 cm corpus luteum present. No suspicious mass is identified. The left maternal ovary measures 2.7 x 1.4 x 1.6 cm. No suspicious right adnexal findings. No maternal pelvic ascites. US/US OB pelvic and transvaginal IMPRESSION: No intrauterine identified.
[2022-09-09 12:18] VITALS: BP 127/72; PULSE 87; RESP 18; TEMP 36.3; O2SAT 99; BMI 30.2
--- NOTE | 2022-09-09 12:20 | ED.GENADULT ---
HPI - General Adult General Source: patient and family () <Ernesto Méndez MD - Last Filed: 09/09/22 16:22> Mode of arrival: ambulatory <Ernesto Méndez MD - Last Filed: 09/09/22 16:22> Limitations: no limitations <Ernesto Méndez MD - Last Filed: 09/09/22 16:22> History of Present Illness HPI narrative: 37-year-old female who states that she had a positive test approximately 2 weeks ago. Patient states that her menstrual periods are very irregular and she cannot identify her last menstrual period. She followed up at [facility] on Tuesday09/07/2022 (3 days prior) and her quantitative beta hCG was 422. She states that over the past 3 days she has had abdominal cramping and bleeding. She states the cramping is been intermittent, greater on the left than on the right. The cramping will last minutes, she has had multiple episodes throughout the day. She describes the bleeding similar to menstrual bleed in character. She states she has not soaked through 1 pad per day. The patient contacted her provider who was concerned the patient may be having a miscarriage versus ectopic and advised the patient to go to the emergency department for evaluation. The patient is a she states she had 1 She denied fever, chills, chest pain, shortness of breath, lightheadedness or dizziness. <Ernesto Méndez MD - Last Filed: 09/09/22 16:22> Related Data Home medications: Previous Rx's Medication Instructions Recorded amoxicillin 875 mg-potassium 1 tab PO BID #20 tabs 07/14/20 clavulanate 125 mg tablet (Augmentin) ondansetron HCl 8 mg tablet 8 mg PO Q8H PRN nausea and 07/14/20 vomiting #30 tabs oxycodone-acetaminophen 10 mg-325 1 tab PO Q6H PRN pain #10 tabs 07/14/20 mg tablet (Percocet) amoxicillin 875 mg-potassium 1 tab PO BID #14 tabs 03/10/21 clavulanate 125 mg tablet (Augmentin) benzonatate 100 mg capsule 100 mg PO TID PRN cough #14 caps 03/10/21 (Andrez Singh) ondansetron 4 mg disintegrating 4 mg PO Q8H PRN nausea and 03/10/21 tablet vomiting #7 tabs prednisone 20 mg tablet 40 mg PO DAILY #10 tabs 03/10/21 cyclobenzaprine 10 mg tablet 10 mg PO BEDTIME PRN muscle spasm 05/21/22 #7 tabs lidocaine 5 % topical patch 1 patch topical DAILY PRN pain #15 05/21/22 ea loperamide 2 mg capsule 2 mg PO Q6H PRN loose stool #14 05/21/22 caps omeprazole 20 mg capsule,delayed 20 mg PO DAILY #30 caps 05/21/22 release levofloxacin 500 mg tablet 500 mg PO DAILY 7 days #7 tabs 06/09/22 ondansetron 4 mg disintegrating 4 mg PO Q6-8H PRN nausea and 06/09/22 tablet vomiting #7 tabs phenazopyridine 200 mg tablet 200 mg PO TID 2 days #6 tabs 06/09/22 (Pyridium) prednisone 20 mg tablet 20 mg PO BID #10 tabs 07/14/22 albuterol sulfate 90 mcg/actuation 1 inh inhalation QID PRN shortness 07/15/22 aerosol inhaler of breath or wheezing #8.5 grams <ENRRIQUE Walls - Last Filed: 09/15/22 20:53> Allergies/adverse reactions: Allergies Allergy/AdvReac Type Severity Reaction Status Date / Time No Known Allergies Allergy Verified 09/09/22 12:23 [No Known Allergies*] <ENRRIQUE Walls - Last Filed: 09/15/22 20:53> Review of Systems Review of Systems: Yes all other systems are reviewed and are negative <Ernesto Méndez MD - Last Filed: 09/09/22 16:22> [facility] Past Medical History [facility] Narrative: Social history: Patient is . Her is here in the emergency department with her. She denies tobacco, alcohol and drug use. <Ernesto Méndez MD - Last Filed: 09/09/22 16:22> Medical History: Medical History Asthma H/O bronchitis Lung granuloma <ENRRIQUE Walls - Last Filed: 09/15/22 20:53> Social History Social History: Social History Alcohol intake: never Patient Tobacco Use Status: Never used Tobacco Smoked in Last 30 Days: No Use of substances other than those prescribed or required for medical reasons: No Advance Directives: No <Sammi Duong [employer] TECHNICAL WRITER[employer] - Last Filed: 09/15/22 20:53> Physical Exam ED Vital Signs: Vital Signs - 24 hr 09/09/22 12:18 09/09/22 12:50 09/09/22 14:39 Temperature 97.3 F 98.0 F 98.1 F Pulse Rate 87 87 77 Respiratory Rate 18 20 Blood Pressure 127/72 114/65 112/69 Pulse Oximetry 99 100 99 Oxygen Delivery Method Room Air Room Air Room Air BMI result Body Mass Index 30.2 <Sammi Duong [facility] - Last Filed: 09/15/22 20:53> Vital Signs - 24 hr 09/09/22 12:18 09/09/22 12:50 09/09/22 14:39 Temperature 97.3 F 98.0 F 98.1 F Pulse Rate 87 87 77 Respiratory Rate 18 20 Blood Pressure 127/72 114/65 112/69 Pulse Oximetry 99 100 99 Oxygen Delivery Method Room Air Room Air Room Air BMI result Body Mass Index 30.2 <Ernesto Méndez MD - Last Filed: 09/09/22 16:22> Const General: cooperative and no acute distress <Ernesto Méndez MD - Last Filed: 09/09/22 16:22> Orientation/consciousness: oriented to person and oriented to place <Ernesto Méndez MD - Last Filed: 09/09/22 16:22> Limitations: no limitations <Ernesto Méndez MD - Last Filed: 09/09/22 16:22> HENMT Head: Yes normal to inspection, Yes normocephalic and Yes atraumatic <Ernesto Méndez MD - Last Filed: 09/09/22 16:22> Ears: external ears normal <Ernesto Méndez MD - Last Filed: 09/09/22 16:22> General nose exam: Normal external nose present <MD Ryley Albrecht Last Filed: 09/09/22 16:22> Face and sinus: Yes normal facial exam <MD Ryley Albrecht Last Filed: 09/09/22 16:22> Mouth: Normal oral and palatal mucosa present <MD Ryley Albrecht Last Filed: 09/09/22 16:22> Throat: Yes posterior oropharynx normal <MD Ryley Albrecht Last Filed: 09/09/22 16:22> Eyes General: appearance normal, both eyes and all related structures <MD Ryley Albrecht Last Filed: 09/09/22 16:22> Pupils: Equal, round and reactive pupils present <MD Ryley Albrecht Last Filed: 09/09/22 16:22> Neck Neck: Yes normal visual inspection, Yes no lymphadenopathy, Yes trachea midline and Yes supple <Ernesto Méndez MD - Last Filed: 09/09/22 16:22> Chest Chest palpation & inspection: normal inspection of the chest and normal palpation of entire chest wall <MD Ryley Albrecht Last Filed: 09/09/22 16:22> Resp Effort & Inspection: normal respiratory effort and able to speak in complete sentences <MD Ryley Albrecht Last Filed: 09/09/22 16:22> Auscultation: clear to auscultation bilaterally <MD Ryley Albrecht Last Filed: 09/09/22 16:22> Cardio Rate: regular rate <MD Ryley Albrecht Last Filed: 09/09/22 16:22> Rhythm: regular rhythm <MD Ryley Albrecht Last Filed: 09/09/22 16:22> Heart sounds: S1 normal heart sound present, S2 normal heart sound present and no murmurs <MD Ryley Albrecht Last Filed: 09/09/22 16:22> GI Inspection: Yes normal to inspection <MD Ryley Albrecht Last Filed: 09/09/22 16:22> Palpation (GI): Soft to palpation, Tenderness to palpation present (GI) in the LLQ (Moderate), in the RLQ (Mild) and suprapubicly ([id number]) and no guarding <Ernesto Méndez MD - Last Filed: 09/09/22 16:22> Auscultation: normal bowel sounds <Ernesto Méndez MD - Last Filed: 09/09/22 16:22> General: Yes no CVA tenderness <Ernesto Méndez MD - Last Filed: 09/09/22 16:22> Back/Spine/Pelvis Back: no CVA tenderness <Ernesto Méndez MD - Last Filed: 09/09/22 16:22> Skin General skin exam: no rashes or lesions noted <Ernesto Méndez MD - Last Filed: 09/09/22 16:22> Neuro General: oriented to person and oriented to place <Ernesto Méndez MD - Last Filed: 09/09/22 16:22> Cranial nerves: Yes Equal, round and reactive pupils present <Ernesto Méndez MD - Last Filed: 09/09/22 16:22> Cognition (Neuro): normal cognition <Ernesto Méndez MD - Last Filed: 09/09/22 16:22> Extrem General: Yes normal to inspection <Ernesto Méndez MD - Last Filed: 09/09/22 16:22> Psych Appearance: grossly normal <Ernesto Méndez MD - Last Filed: 09/09/22 16:22> Speech and movement: Normal speech and movement present <Ernesto Méndez MD - Last Filed: 09/09/22 16:22> Affect: normal affect <Ernesto Méndez MD - Last Filed: 09/09/22 16:22> Attitude: cooperative <Ernesto Méndez MD - Last Filed: 09/09/22 16:22> Course Course Course Narrative: 09/09/2022 11:18 RME: 37-year-old female is here today complaining of left lower quadrant pain and spotting. Patient was sent by her OBGYN for rule out possible ectopic . Last menstrual period 6 weeks ago. On 09/07/2022 she had blood work done hCG quantitative was 422. Patient reports that she uses 1 pad every 2-3 hours. Patient reports that she has left lower quadrant pain that started last night. Patient reports that she has problems moving her bowels. Exam without any abdominal tenderness. Vitals reviewed and stable. Patient is hemodynamically stable will be sent to emergency department waiting room where she will get her blood work done. Will order hCG quantitative, CBC, CMP, ultrasound pelvic and transvaginal, urinalysis. Will give patient Colace. <PRITI Walls-BC - Last Filed: 09/15/22 20:53> Medications Administered Discontinued Medications Generic Name Dose Route Start Last Admin Trade Name Freq PRN Reason Stop Dose Admin Docusate Sodium 100 mg 09/09/22 12:22 09/09/22 12:49 Docusate Sodium 100 Mg Capsule PO 09/09/22 12:23 100 mg ONCE ONE Administration <PRITI Walls-BC - Last Filed: 09/15/22 20:53> Medications Administered Discontinued Medications Generic Name Dose Route Start Last Admin Trade Name Freq PRN Reason Stop Dose Admin Docusate Sodium 100 mg 09/09/22 12:22 09/09/22 12:49 Docusate Sodium 100 Mg Capsule PO 09/09/22 12:23 100 mg ONCE ONE Administration <Ernesto Méndez MD - Last Filed: 09/09/22 16:22> Medical Decision Making Medical Decision Making MDM Narrative: 37-year-old female, , with unknown last menstrual period secondary to irregular periods who had a positive home test 2 weeks prior, quantitative beta-hCG 3 days prior was 422. Patient has had vaginal bleeding x3 days with intermittent, frequent lower abdominal cramping left greater than right. Physical examination did reveal increased tenderness the left pelvic area as opposed to the right. I ordered a CBC, CMP, quantitative beta-hCG and pelvic/transvaginal ultrasound. 1338: Laboratory evaluation interpreted by me as follows: CBC was normal, CMP was normal except for slight elevation in glucose of 182. Patient's quantitative beta-hCG was 111. These findings are concerning for possible miscarriages since the patient had a decreased in your quantitative beta-hCG from 422 down to 111. However, given her on numb last menstrual period is still want to rule her out for ruptured ectopic therefore we will obtain the pelvic ultrasound. Also, the patient does not know her blood type and she refused repeat blood draw for ABO Rh. The patient has had 3 pregnancies and she has not been treated with RhoGAM. 1619: The patient was able to check your patient portal and her blood type is O-positive therefore I canceled the ABO Rh. Patient's pelvic ultrasound revealed normal uterus, normal atelectasis a and ovaries. At this time I do not think that the patient has had a topic sent but I believe that she has had complete miscarriage and I did discuss this with her. Patient will be discharged home. She was advised to follow-up with her OBGYN in 1 week for repeat quantitative beta-hCG to make sure that this bili goes down to 0. She did have a slight elevation in glucose of 1829 did discuss this with her. She states she has a glucometer home since she had gestational diabetes and she can check her glucose to make sure that her values are coming down <Ernesto Méndez MD - Last Filed: 09/09/22 16:22> Differential Diagnosis Differential diagnosis includes was not limited to intrauterine , topic , bleeding with <Ernesto Méndez MD - Last Filed: 09/09/22 16:22> Lab Data [facility] Lab Attestation statement: I reviewed the patient's lab results. <Ernesto Méndez MD - Last Filed: 09/09/22 16:22> Please see [facility] for my interpretation of lab <Ernesto Méndez MD - Last Filed: 09/09/22 16:22> Result Diagrams: 09/09/22 12:28 09/09/22 12:28 <ENRRIQUE Walls - Last Filed: 09/15/22 20:53> Labs: Lab Results 09/09/22 09/09/22 Range/Units 12:28 12:28 WBC 9.4 (4.8-10.8) X10*3/uL RBC 4.21 (4.20-5.50) X10*6/uL Hgb 12.6 (12.0-16.0) g/dl Hct 38.5 (37.0-47.0) % MCV 91.4 (80.0-98.0) fL MCH 29.9 (27.0-33.0) pg MCHC 32.7 (31.0-35.0) g/dl RDW 12.1 (11.0-16.0) % Plt Count 241 (160-400) X10*3/uL MPV 9.9 (9.4-12.3) fL Immature Gran % (Auto) 0.3 (0.0-0.4) % Neut % (Auto) 60.0 (45-73) % Lymph % (Auto) 25.8 (20-40) % Calvert % (Auto) 6.5 (2-11) % Eos % (Auto) 6.8 H (0-4) % Baso % (Auto) 0.6 (0-2) % Lymph # (Auto) 2.4 (1.2-4.9) X10*3/uL Calvert # (Auto) 0.6 (0.1-1.2) X10*3/uL Eos # (Auto) 0.6 H (0.0-0.4) X10*3/uL Baso # (Auto) 0.1 (0.0-0.2) X10*3/uL Abs Immat Gran (auto) 0.03 (0.00-0.03) X10*3/uL Absolute Neuts (auto) 5.6 (2.0-8.3) x10*3/uL Absolute Nucleated RBC 0.000 (0.0-0.012) X10*3/uL Nucleated RBC % (auto) 0.0 (0.0-0.2) /100WBC Sodium 138 (135-145) mmol/L Potassium 4.1 (3.3-5.1) mmol/L Chloride 105 (96-108) mmol/L Carbon Dioxide 26 (22-29) mmol/L Anion Gap 11 L (12-20) BUN 9 (9-16) mg/dL Creatinine 0.84 (0.5-1.4) mg/dL Estim Creat Clear Calc 85.2 Estimated GFR > 60 Random Glucose 182 H (60-115) mg/dL Calcium 9.6 D (8.4-10.2) mg/dL Total Bilirubin 0.7 (0.0-1.0) mg/dL AST 18 (5-31) U/L ALT 15 (0-31) U/L Alkaline Phosphatase 63 (39-117) U/L Total Protein 6.9 (6.5-8.0) g/dL Albumin 4.2 (3.5-5.0) g/dL Beta HCG, Quant 111 mIU/mL <Sammi Duong, HEALTH TECHNICAL WRITER-BC - Last Filed: 09/15/22 20:53> Lab Results 09/09/22 09/09/22 Range/Units 12:28 12:28 WBC 9.4 (4.8-10.8) X10*3/uL RBC 4.21 (4.20-5.50) X10*6/uL Hgb 12.6 (12.0-16.0) g/dl Hct 38.5 (37.0-47.0) % MCV 91.4 (80.0-98.0) fL MCH 29.9 (27.0-33.0) pg MCHC 32.7 (31.0-35.0) g/dl RDW 12.1 (11.0-16.0) % Plt Count 241 (160-400) X10*3/uL MPV 9.9 (9.4-12.3) fL Immature Gran % (Auto) 0.3 (0.0-0.4) % Neut % (Auto) 60.0 (45-73) % Lymph % (Auto) 25.8 (20-40) % Calvert % (Auto) 6.5 (2-11) % Eos % (Auto) 6.8 H (0-4) % Baso % (Auto) 0.6 (0-2) % Lymph # (Auto) 2.4 (1.2-4.9) X10*3/uL Calvert # (Auto) 0.6 (0.1-1.2) X10*3/uL Eos # (Auto) 0.6 H (0.0-0.4) X10*3/uL Baso # (Auto) 0.1 (0.0-0.2) X10*3/uL Abs Immat Gran (auto) 0.03 (0.00-0.03) X10*3/uL Absolute Neuts (auto) 5.6 (2.0-8.3) x10*3/uL Absolute Nucleated RBC 0.000 (0.0-0.012) X10*3/uL Nucleated RBC % (auto) 0.0 (0.0-0.2) /100WBC Sodium 138 (135-145) mmol/L Potassium 4.1 (3.3-5.1) mmol/L Chloride 105 (96-108) mmol/L Carbon Dioxide 26 (22-29) mmol/L Anion Gap 11 L (12-20) BUN 9 (9-16) mg/dL Creatinine 0.84 (0.5-1.4) mg/dL Estim Creat Clear Calc 85.2 Estimated GFR > 60 Random Glucose 182 H (60-115) mg/dL Calcium 9.6 D (8.4-10.2) mg/dL Total Bilirubin 0.7 (0.0-1.0) mg/dL AST 18 (5-31) U/L ALT 15 (0-31) U/L Alkaline Phosphatase 63 (39-117) U/L Total Protein 6.9 (6.5-8.0) g/dL Albumin 4.2 (3.5-5.0) g/dL Beta HCG, Quant 111 mIU/mL <Ernesto Méndez MD - Last Filed: 09/09/22 16:22> Independent Interpretation Interpretation: Pelvic/transvaginal ultrasound FINDINGS: Uterus measures approximately 10.2 x 3.9 x 5.6 cm in size without evidence of an intrauterine . No gestational sac is appreciated. Endometrium measures 8 mm in diameter. MATERNAL ADNEXA: The right maternal ovary measures 2.6 x 1.6 x 1.7 cm. There is a 1.2 x 0.9 x 1.0 cm corpus luteum present. No suspicious mass is identified. The left maternal ovary measures 2.7 x 1.4 x 1.6 cm. No suspicious right adnexal findings. No maternal pelvic ascites. US/US OB pelvic and transvaginal IMPRESSION: No intrauterine identified. Dictated By:Tucker Sandovaligned By:<Electronically signed by Tucker Sandoval MD in OV>09/09/22 1537 <Ernesto Méndez MD - Last Filed: 09/09/22 16:22> Radiology Impression Discussion of test interpretation with radiology: I have reviewed the radiologist's reading. <Ernesto Méndez MD - Last Filed: 09/09/22 16:22> Independent Historian Clinical information obtained from an independent historian. History obtained from or confirmed by: Spouse <Ernesto Méndez MD - Last Filed: 09/09/22 16:22> External Record Review External record reviewed: Other (The patient's portal at [facility] with her and her blood type is O-positive) <Ernesto Méndez MD - Last Filed: 09/09/22 16:22> Discharge Plan Discharge Clinical Impression: Complete miscarriage <ENRRQIUE Walls - Last Filed: 09/15/22 20:53> Patient Disposition: Home, Self-Care <ENRRIQUE Walls - Last Filed: 09/15/22 20:53> Instructions: Miscarriage (ED) <ENRRIQUE Walls - Last Filed: 09/15/22 20:53> Additional Instructions: Your pelvic ultrasound was normal which is reassuring. You are not anemic. Your blood chemistries were normal except for slight elevation in glucose of 182. Your quantitative beta hCG today was 111 which is lower than your previous 1 suggesting that you had a miscarriage. You should follow-up with your composing machine operator in 1 week to get a repeat quantitative beta HCG to make sure that this is going to 0. Insert discharge follow-up return. <ENRRIQUE Walls - Last Filed: 09/15/22 20:53> Prescriptions: No Action amoxicillin-pot clavulanate [Augmentin] 875-125 mg tablet 1 tab PO BID Qty: 14 0RF ondansetron 4 mg tablet,disintegrating 4 mg PO Q8H PRN (Reason: nausea and vomiting) Qty: 7 0RF prednisone 20 mg tablet 40 mg PO DAILY Qty: 10 0RF benzonatate [Tessalon Perles] 100 mg capsule 100 mg PO TID PRN (Reason: cough) Qty: 14 0RF levofloxacin 500 mg tablet 500 mg PO DAILY 7 Days Qty: 7 0RF phenazopyridine [Pyridium] 200 mg tablet 200 mg PO TID 2 Days Qty: 6 0RF ondansetron 4 mg tablet,disintegrating 4 mg PO Q6-8H PRN (Reason: nausea and vomiting) Qty: 7 0RF omeprazole 20 mg capsule,delayed release(DR/EC) 20 mg PO DAILY Qty: 30 0RF cyclobenzaprine 10 mg tablet 10 mg PO BEDTIME PRN (Reason: muscle spasm) Qty: 7 0RF lidocaine 5 % adhesive patch,medicated 1 patch topical DAILY PRN (Reason: pain) Qty: 15 0RF Rx Instructions: leave on most painful area for up to 12 hrs loperamide 2 mg capsule 2 mg PO Q6H PRN (Reason: loose stool) Qty: 14 0RF prednisone 20 mg tablet 20 mg PO BID Qty: 10 0RF albuterol sulfate 90 mcg/actuation HFA aerosol inhaler 1 inh inhalation QID PRN (Reason: shortness of breath or wheezing) Qty: 8.5 0RF amoxicillin-pot clavulanate [Augmentin] 875-125 mg tablet 1 tab PO BID Qty: 20 0RF ondansetron HCl 8 mg tablet 8 mg PO Q8H PRN (Reason: nausea and vomiting) Qty: 30 1RF oxycodone-acetaminophen [Percocet] 10-325 mg tablet 1 tab PO Q6H PRN (Reason: pain) Qty: 10 0RF <ENRRIQUE Walls - Last Filed: 09/15/22 20:53> Interventions: ED Discharge Assessment Last Done: 09/09/22 16:36 <ENRRIQUE Walls - Last Filed: 09/15/22 20:53> Discharge Date/Time: 09/09/22 16:37 <ENRRIQUE Walls - Last Filed: 09/15/22 20:53>
[2022-09-09 12:34] LABS: MANUAL DIFF FLAG NO
[2022-09-09 12:38] LABS: Basophils Absolute Auto 0.1 X10*3/uL (0.0-0.2); Basophils Percent Auto 0.6 % (0-2); Eosinophils Absolute Auto 0.6 X10*3/uL (0.0-0.4); Eosinophils Percent Auto 6.8 % (0-4); Hematocrit 38.5 % (37.0-47.0); Hemoglobin 12.6 g/dl (12.0-16.0); Imm Gran Abs Auto 0.03 X10*3/uL (0.00-0.03); Imm Gran Pct Auto 0.3 % (0.0-0.4); Lymphocytes Absolute Auto 2.4 X10*3/uL (1.2-4.9); Lymphocytes Percent Auto 25.8 % (20-40); Mean Corpuscular HGB Conc 32.7 g/dl (31.0-35.0); Mean Corpuscular Hemoglobin 29.9 pg (27.0-33.0); Mean Corpuscular Volume 91.4 fL (80.0-98.0); Mean Platelet Volume 9.9 fL (9.4-12.3); Monocytes Absolute Auto 0.6 X10*3/uL (0.1-1.2); Monocytes Percent Auto 6.5 % (2-11); Neutrophils Absolute Auto 5.6 x10*3/uL (2.0-8.3); Platelet Count 241 X10*3/uL (160-400); Red Blood Count 4.21 X10*6/uL (4.20-5.50); Red Cell Distribution Width 12.1 % (11.0-16.0); White Blood Count 9.4 X10*3/uL (4.8-10.8)
[2022-09-09] MEDS: Docusate Sodium 100 MG CAPSULE PO (12:49)
[2022-09-09 12:50] VITALS: BP 114/65; PULSE 87; RESP 20; TEMP 36.7; O2SAT 100
[2022-09-09 12:54] LABS: Alanine Aminotransferase 15 U/L (0-31); Albumin Level 4.2 g/dL (3.5-5.0); Alkaline Phosphatase 63 U/L (39-117); Anion Gap 11 (12-20); Aspartate Amino Transferase 18 U/L (5-31); Bilirubin Total 0.7 mg/dL (0.0-1.0); Blood Urea Nitrogen 9 mg/dL (9-16); Calcium 9.6 mg/dL (8.4-10.2); Carbon Dioxide 26 mmol/L (22-29); Chloride 105 mmol/L (96-108); Creatinine Clr Calc Pharmacy 85.2; Estimated Glomerular Filt Rate > 60; Glucose Random 182 mg/dL (60-115); Potassium 4.1 mmol/L (3.3-5.1); Sodium 138 mmol/L (135-145); Total Protein 6.9 g/dL (6.5-8.0)
[2022-09-09 12:59] LABS: HCG Quantitative 111 mIU/mL
[2022-09-09 14:39] VITALS: BP 112/69; PULSE 77; TEMP 36.7; O2SAT 99
== END 2022-09-09 16:37 | disposition home or self-care (01) ==
PROVIDERS: Nurse Practitioner Family; Emergency Provider Emergency Medicine Emergency Medical Services
DX: O03.9 Complete or unspecified spontaneous abortion without complication (principal); R10.32 Left lower quadrant pain; Z79.899 Other long term (current) drug therapy
CPT/HCPCS: 36415; 76801; 76817; 80053; 84702; 85025; 99284

== ENCOUNTER 2023-06-22 04:39 | Emergency (ER) | payer OTHER, SELFPAY ==
--- NOTE | ~2023-06-22 | CT_ITS ---
EXAMINATION: CT ABDOMEN AND PELVIS WITH CONTRAST CLINICAL INFORMATION: Right lower quadrant pain COMPARISON: 05/21/2022 TECHNIQUE: Multidetector volumetric images were obtained from the superior aspect of the liver through the pubic symphysis following administration 85 mL of Omnipaque 350 intravenous contrast. Sagittal and coronal reformatted images were obtained on the technologist's workstation. Oral contrast: No This CT examination was performed using dose optimization techniques as appropriate, variously including the following: *Automated exposure control *Adjustment of mA and/or kV according to patient size (this includes techniques or standardized protocols for targeted exams where dose is matched to indication/reason for exam; i.e. extremities or head) *Use of iterative reconstruction technique DLP: 550 mGy-cm FINDINGS: LUNG BASES: The visualized lung bases are unremarkable. LIVER, GALLBLADDER, AND BILIARY TREE: The liver is normal in size, shape, and attenuation. No focal hepatic lesion or biliary ductal dilatation is present. The gallbladder is unremarkable with no evidence of radiopaque gallstones, gallbladder wall thickening, or obvious pericholecystic inflammatory changes. PANCREAS: Unremarkable. SPLEEN: Unremarkable. ADRENAL GLANDS: Unremarkable. KIDNEYS AND URETERS: No hydronephrosis or obstructing calculus bilaterally. A few scattered calculi are present in each kidney measuring up to 4 mm. BLADDER: Minimally distended and grossly unremarkable. GASTROINTESTINAL TRACT: No evidence of bowel obstruction or significant wall thickening. The appendix is unremarkable. No free fluid or free air is seen. ABDOMINAL WALL: No significant hernia is appreciated. LYMPH NODES: Normal. VASCULAR: Unremarkable. PELVIC VISCERA: Cystic structure in the right adnexa measures 5.7 x 4.5 x 5.3 cm. OSSEOUS STRUCTURES: Unremarkable. CT/CT abdomen pelvis w IV con IMPRESSION: 1. Cystic structure in the right adnexa measuring up to 5.7, likely a probable benign cyst. If there is clinical concern for acute ovarian pathology at this time, further evaluation with pelvic ultrasound is recommended. Otherwise, recommend followup ultrasonography in 3-6 months. 2. Normal appendix. 3. Few scattered bilateral renal calculi without hydronephrosis.
--- NOTE | ~2023-06-22 | US_ITS ---
EXAMINATION: US PELVIS CLINICAL INFORMATION: Right adnexal mass with question of torsion COMPARISON: CT abdomen pelvis earlier today TECHNIQUE: Ultrasound of the pelvis is performed using both transabdominal and transvaginal transducers along with Doppler. Transvaginal imaging is performed due to inadequate visualization transabdominally. FINDINGS: Uterus: The uterus is anteverted and measures 11.8 x 4.1 x 6.7 cm. The double wall endometrial thickness is 1.0 mm. The uterus is smooth in contour and has normal myometrial echogenicity. No visible fibroid. Nabothian cysts are present in the cervix. Adnexa: Both ovaries are visualized. There is normal color flow to the adnexa. There is no ovarian torsion. There is no pelvic ascites or fluid collection. Right ovary measures 6.9 x 4.3 x 5.5 cm for a volume of 87 mL which includes the large 5.7 x 3.6 x 5.2 cm cyst as seen on the CT abdomen pelvis performed earlier today. Left ovary measures 3.1 x 1.5 x 1.8 cm for a volume of 4.4 mL and appears normal. US/US pelvic ovarian doppler IMPRESSION: 1. No evidence of ovarian torsion. 2. Large 5.7 right ovarian cyst. A follow-up exam in 3-6 months is recommended.
--- NOTE | ~2023-06-22 | US_ITS ---
EXAMINATION: US PELVIS CLINICAL INFORMATION: Right adnexal mass with question of torsion COMPARISON: CT abdomen pelvis earlier today TECHNIQUE: Ultrasound of the pelvis is performed using both transabdominal and transvaginal transducers along with Doppler. Transvaginal imaging is performed due to inadequate visualization transabdominally. FINDINGS: Uterus: The uterus is anteverted and measures 11.8 x 4.1 x 6.7 cm. The double wall endometrial thickness is 1.0 mm. The uterus is smooth in contour and has normal myometrial echogenicity. No visible fibroid. Nabothian cysts are present in the cervix. Adnexa: Both ovaries are visualized. There is normal color flow to the adnexa. There is no ovarian torsion. There is no pelvic ascites or fluid collection. Right ovary measures 6.9 x 4.3 x 5.5 cm for a volume of 87 mL which includes the large 5.7 x 3.6 x 5.2 cm cyst as seen on the CT abdomen pelvis performed earlier today. Left ovary measures 3.1 x 1.5 x 1.8 cm for a volume of 4.4 mL and appears normal. US/US pelvic and transvaginal IMPRESSION: 1. No evidence of ovarian torsion. 2. Large 5.7 right ovarian cyst. A follow-up exam in 3-6 months is recommended.
[2023-06-22 04:40] VITALS: BP 123/81; PULSE 94; RESP 18; TEMP 36.6; O2SAT 99; BMI 29.5
[2023-06-22 05:11] LABS: MANUAL DIFF FLAG NO
[2023-06-22 05:12] LABS: Basophils Absolute Auto 0.1 X10*3/uL (0.0-0.2); Basophils Percent Auto 0.6 % (0-2); Eosinophils Absolute Auto 0.9 X10*3/uL (0.0-0.4); Eosinophils Percent Auto 10.9 % (0-4); Hematocrit 39.4 % (37.0-47.0); Imm Gran Abs Auto 0.02 X10*3/uL (0.00-0.03); Imm Gran Pct Auto 0.2 % (0.0-0.4); Lymphocytes Absolute Auto 2.4 X10*3/uL (1.2-4.9); Lymphocytes Percent Auto 29.1 % (20-40); Mean Corpuscular Hemoglobin 30.4 pg (27.0-33.0); Mean Corpuscular Volume 92.3 fL (80.0-98.0); Mean Platelet Volume 9.5 fL (9.4-12.3); Monocytes Absolute Auto 0.6 X10*3/uL (0.1-1.2); Monocytes Percent Auto 7.3 % (2-11); Neutrophils Absolute Auto 4.2 x10*3/uL (2.0-8.3); Neutrophils Percent Auto 51.9 % (45-73); Platelet Count 210 X10*3/uL (160-400); Red Blood Count 4.27 X10*6/uL (4.20-5.50); Red Cell Distribution Width 11.8 % (11.0-16.0); White Blood Count 8.1 X10*3/uL (4.8-10.8)
[2023-06-22] MEDS: ondansetron HCL 4 MG/2 ML VIAL IVPUSH (05:24)
[2023-06-22] MEDS: Ketorolac Tromethamine 15 MG/ML VIAL IVPUSH (05:24)
[2023-06-22 05:30] LABS: Alanine Aminotransferase 13 U/L (0-31); Albumin Level 4.1 g/dL (3.5-5.0); Alkaline Phosphatase 56 U/L (39-117); Anion Gap 13 (12-20); Aspartate Amino Transferase 16 U/L (5-31); Bilirubin Direct 0.3 mg/dL (0.0-0.5); Bilirubin Total 0.8 mg/dL (0.0-1.0); Blood Urea Nitrogen 15 mg/dL (9-16); Calcium 9.1 mg/dL (8.4-10.2); Carbon Dioxide 24 mmol/L (22-29); Chloride 106 mmol/L (96-108); Creatinine Clr Calc Pharmacy 90.5; Estimated Glomerular Filt Rate > 60; Glucose Random 104 mg/dL (60-115); Lipase 25 U/L (8-78); Potassium 4.1 mmol/L (3.3-5.1); Sodium 139 mmol/L (135-145); Total Protein 7.2 g/dL (6.5-8.0)
[2023-06-22] MEDS: 0.9 % Sodium Chloride 1,000 ML 999 ML IV (05:31)
--- NOTE | 2023-06-22 05:53 | PC.NURSE ---
this rn assumed care of pt. pt a&ox4. respirations even and unlabored. pt coming from home reporting 3 days of lower abdominal cramping. pt reports normal bowel movements and denies urinary burning and blood. pt reports a discomfort in the lower abdomen after voiding. pt has episodes of nausea with no vomiting. iv established and urine sent at this time.
[2023-06-22 05:57] LABS: Appearance Urine Clear; Color Urine Yellow; Glucose Urine UA Negative (Negative); Leukocyte Esterase Urine Trace (Negative); Nitrite Urine Negative (Negative); PH 6.5 (5.0-9.0); Specific Gravity - Urine 1.025 (1.005-1.025); UMIC TRIGGER UACC YES; Urine Blood Negative (Negative); Urine Ketones Negative (Negative); Urine Protein Negative (Neg-Trace)
[2023-06-22 05:58] LABS: UPreg QC Valid YES; Urine Pregnancy NEGATIVE (NEGATIVE)
[2023-06-22 06:02] LABS: Bacteria Urine None Seen (None Seen); Hyaline Casts Urine 0-2 /LPF (0-2); WBC Urine 0-5 /HPF (0-5)
[2023-06-22] MEDS: iohexoL 350 MG/ML 100 ML INFUS..BTL 85 ML IV (06:15)
[2023-06-22 06:26] VITALS: BP 115/73; PULSE 76; RESP 18; O2SAT 100
--- NOTE | 2023-06-22 06:51 | ED_ITS ---
HPI - General Adult General Chief complaint: Abdominal Pain Stated complaint: abdominal pain Time Seen by Provider: 06/22/23 06:24 Source: patient Mode of arrival: ambulatory Limitations: no limitations History of Present Illness HPI narrative: Patient is a 37-year-old female with history of diverticulitis presenting to the emergency department with 3 days of right lower quadrant abdominal pain. She reports some nausea but denies vomiting. Denies any diarrhea or constipation. Denies fevers. Denies chest pain or shortness of breath. Denies dysuria or frequency, does report mild discomfort following urination. Reports that pain is currently 6/10. States that pain is constant but waxes and wanes in intensity. Denies any abnormal vaginal discharge. Denies concern for STIs. MD complaint: Abdominal pain Onset (ago): day(s) Location: abdomen Radiation: non-radiation Severity: moderate Severity scale (1-10): 6 Quality: aching Pain Consistency: colicky Relieving factors: none Exacerbating factors: none Associated symptoms: nausea/vomiting (Reports nausea denies vomiting) Treatments prior to arrival: none Related Data Previous Rx's Medication Instructions Recorded amoxicillin 875 mg-potassium 1 tab PO BID #20 tabs 07/14/20 clavulanate 125 mg tablet (Augmentin) ondansetron HCl 8 mg tablet 8 mg PO Q8H PRN nausea and 07/14/20 vomiting #30 tabs oxycodone-acetaminophen 10 mg-325 1 tab PO Q6H PRN pain #10 tabs 07/14/20 mg tablet (Percocet) amoxicillin 875 mg-potassium 1 tab PO BID #14 tabs 03/10/21 clavulanate 125 mg tablet (Augmentin) benzonatate 100 mg capsule 100 mg PO TID PRN cough #14 caps 03/10/21 (Tessalon Francisco) ondansetron 4 mg disintegrating 4 mg PO Q8H PRN nausea and 03/10/21 tablet vomiting #7 tabs prednisone 20 mg tablet 40 mg (2 x 20 mg) PO DAILY #10 tabs 03/10/21 cyclobenzaprine 10 mg tablet 10 mg PO BEDTIME PRN muscle spasm 05/21/22 #7 tabs lidocaine 5 % topical patch 1 patch topical DAILY PRN pain #15 05/21/22 ea loperamide 2 mg capsule 2 mg PO Q6H PRN loose stool #14 05/21/22 caps omeprazole 20 mg capsule,delayed 20 mg PO DAILY #30 caps 05/21/22 release levofloxacin 500 mg tablet 500 mg PO DAILY 7 days #7 tabs 06/09/22 ondansetron 4 mg disintegrating 4 mg PO Q6-8H PRN nausea and 06/09/22 tablet vomiting #7 tabs phenazopyridine 200 mg tablet 200 mg PO TID 2 days #6 tabs 06/09/22 (Pyridium) prednisone 20 mg tablet 20 mg PO BID #10 tabs 07/14/22 albuterol sulfate 90 mcg/actuation 1 inh inhalation QID PRN shortness 07/15/22 aerosol inhaler of breath or wheezing #8.5 grams ibuprofen 600 mg tablet 600 mg PO TID PRN pain #20 tabs 06/22/23 Allergies Allergy/AdvReac Type Severity Reaction Status Date / Time No Known Allergies Allergy Verified 06/22/23 04:44 [No Known Allergies*] Review of Systems 2 Review of Systems: As per HPI. Yes all other systems are reviewed and are negative Constitutional: Constitutional: Reports as per HPI [facility] Past Medical History Medical History Asthma H/O bronchitis Lung granuloma Social History Social History Alcohol intake: never Patient Tobacco Use Status: Never used Tobacco Smoked in Last 30 Days: No Use of substances other than those prescribed or required for medical reasons: No Advance Directives: No Advance Directives Information Provided: No Patient : No Physical Exam ED Vital Signs: Vital Signs - 24 hr 06/22/23 04:40 06/22/23 06:26 Temperature 97.9 F Pulse Rate 94 76 Respiratory Rate 18 18 Blood Pressure 123/81 115/73 Pulse Oximetry 99 100 Oxygen Delivery Method Room Air Room Air BMI result Body Mass Index 29.5 Vital signs have been reviewed and appear to be correct. Blood pressure normal. Heart rate normal. Respiratory rate normal. Temperature normal. Oxygen saturation normal. Const General: cooperative, healthy appearing and no acute distress Orientation/consciousness: oriented to person, oriented to place, oriented to time and patient oriented x3 Limitations: no limitations HENMT Head: Yes normocephalic and Yes atraumatic Ears: external ears normal General nose exam: Normal external nose present Face and sinus: Yes face symmetric Mouth: oropharynx normal and moist mucous membranes Throat: Yes uvula midline Eyes Pupils: Equal, round and reactive pupils present Neck Neck: Yes normal visual inspection and Yes supple Resp Effort & Inspection: normal respiratory effort and able to speak in complete sentences Auscultation: clear to auscultation bilaterally Cardio Rate: regular rate Rhythm: regular rhythm Heart sounds: S1 normal heart sound present and S2 normal heart sound present GI Inspection: Yes normal to inspection Palpation (GI): Soft to palpation, Tenderness to palpation present (GI) in the RLQ (mild); with no rebound tenderness, no guarding and No Rebound tenderness present Auscultation: normoactive bowel sounds General: Yes no CVA tenderness Back/Spine/Pelvis Back: no CVA tenderness Skin General skin exam: elasticity normal and turgor normal Neuro General: oriented to person, oriented to place, oriented to time, patient oriented x3, moves all extremities, no focal motor deficits and CN's II-XI intact bilaterally Cranial nerves: Yes Equal, round and reactive pupils present Cognition (Neuro): normal cognition Extrem General: Yes full ROM, Yes no pedal edema and Yes no calf tenderness Psych Mental Status: mental status grossly normal Affect: normal affect Thought process: Normal thought process present Medications Administered Discontinued Medications Generic Name Dose Route Start Last Admin Trade Name Freq PRN Reason Stop Dose Admin Sodium Chloride 1,000 mls @ 999 mls/hr 06/22/23 05:15 06/22/23 08:13 Ns IV 06/22/23 06:15 Infused .Q1H1M RAJAN Infusion Iohexol 85 ml 06/22/23 06:14 06/22/23 06:15 Iohexol 350 Mg/Ml 100 Ml Infus..Btl IV 06/22/23 06:15 85 ml ONCE ONE Administration Ketorolac Tromethamine 15 mg 06/22/23 05:06 06/22/23 05:24 Ketorolac Tromethamine 15 Mg/Ml Vial IVPUSH 06/22/23 05:07 15 mg ONCE ONE Administration Ondansetron HCl 4 mg 06/22/23 05:06 06/22/23 05:24 Ondansetron Hcl 4 Mg/2 Ml Vial IVPUSH 06/22/23 05:07 4 mg ONCE ONE Administration Medical Decision Making Medical Decision Making [facility] Narrative: Patient is a 37-year-old female with history of diverticulitis presenting to the emergency department with 3 days of right lower quadrant abdominal pain. On exam patient is awake, A+Ox3, VS WNL, afebrile, normal neurological exam without focal deficits, physical exam findings as above. Given reported symptoms and physical exam findings, initial differential includes appendicitis, ovarian cyst, ovarian torsion, UTI, renal/ureteral calculi. Labs unremarkable. UA with trace leukocytes, 0-5 wbc's, no bacteria, 3-5 epithelial so likely contamination. CT notable for 5.7cm cystic structure right adnexa. My interpretation is in agreement with the radiologist's interpretation. Will obtain ultrasound to rule out torsion. Patient reports pain has improved with Toradol. No evdeince of ovarian torsion on U/S. Patient updated on results and all questions answered. Patient reports she has an [employer] to follow up with, instructed patient to call this week for appointment. Discussed with patient that follow-up ultrasound in 3-6 months is advised. Return precautions discussed at bedside. Will prescribe 600 mg ibuprofen as needed for pain. Patient verbalized understanding of and agreement with plan. Differential Diagnosis Differential Diagnoses: The differential diagnosis associated with the presentation includes As per [facility]. Admission/Observation Consideration of admission/observation: Escalation of care including admission/observation considered Lab Data [facility] Lab Attestation statement: I reviewed the patient's lab results. As per [facility] 06/22/23 05:06 06/22/23 05:06 Labs: Lab Results 06/22/23 06/22/23 Range/Units 05:06 05:49 WBC 8.1 (4.8-10.8) X10*3/uL RBC 4.27 (4.20-5.50) X10*6/uL Hgb 13.0 (12.0-16.0) g/dl Hct 39.4 (37.0-47.0) % MCV 92.3 (80.0-98.0) fL MCH 30.4 (27.0-33.0) pg MCHC 33.0 (31.0-35.0) g/dl RDW 11.8 (11.0-16.0) % Plt Count 210 (160-400) X10*3/uL MPV 9.5 (9.4-12.3) fL Immature Gran % (Auto) 0.2 (0.0-0.4) % Neut % (Auto) 51.9 (45-73) % Lymph % (Auto) 29.1 (20-40) % [place] % (Auto) 7.3 (2-11) % Eos % (Auto) 10.9 H (0-4) % Baso % (Auto) 0.6 (0-2) % Lymph # (Auto) 2.4 (1.2-4.9) X10*3/uL [place] # (Auto) 0.6 (0.1-1.2) X10*3/uL Eos # (Auto) 0.9 H (0.0-0.4) X10*3/uL Baso # (Auto) 0.1 (0.0-0.2) X10*3/uL Abs Immat Gran (auto) 0.02 (0.00-0.03) X10*3/uL Absolute Neuts (auto) 4.2 (2.0-8.3) x10*3/uL Absolute Nucleated RBC 0.000 (0.0-0.012) X10*3/uL Nucleated RBC % (auto) 0.0 (0.0-0.2) /100WBC Sodium 139 (135-145) mmol/L Potassium 4.1 (3.3-5.1) mmol/L Chloride 106 (96-108) mmol/L Carbon Dioxide 24 (22-29) mmol/L Anion Gap 13 (12-20) BUN 15 (9-16) mg/dL Creatinine 0.78 (0.5-1.4) mg/dL Estim Creat Clear Calc 90.5 Estimated GFR > 60 Random Glucose 104 (60-115) mg/dL Calcium 9.1 (8.4-10.2) mg/dL Total Bilirubin 0.8 (0.0-1.0) mg/dL Direct Bilirubin 0.3 (0.0-0.5) mg/dL AST 16 (5-31) U/L ALT 13 (0-31) U/L Alkaline Phosphatase 56 (39-117) U/L Total Protein 7.2 (6.5-8.0) g/dL Albumin 4.1 (3.5-5.0) g/dL Lipase 25 (8-78) U/L Urine Color Yellow Urine Appearance Clear Urine pH 6.5 (5.0-9.0) Ur Specific [place] 1.025 (1.005-1.025) Urine Protein Negative (Neg-Trace) mg/dL Urine Glucose (UA) Negative (Negative) mg/dL Urine Ketones Negative (Negative) mg/dL Urine Blood Negative (Negative) Urine Nitrite Negative (Negative) Ur Leukocyte Esterase Trace H (Negative) Urine RBC 3-5 H (0-2) /HPF Urine WBC 0-5 (0-5) /HPF Ur Squamous Epith Cells 3-5 (0-2) /HPF Urine Bacteria None Seen (None Seen) Hyaline Casts 0-2 (0-2) /LPF Urine Test NEGATIVE (NEGATIVE) Independent Interpretation I performed an independent interpretation of an: Ultrasound and CT Scan Interpretation: 5.7cm right adnexal cyst, normal appendix No evidence of torsion on U/S Radiology Impression Discussion of test interpretation with radiology: I have reviewed the radiologist's reading. Radiologist Impression: CT/CT abdomen pelvis w IV con IMPRESSION: 1. Cystic structure in the right adnexa measuring up to 5.7, likely a probable benign cyst. If there is clinical concern for acute ovarian pathology at this time, further evaluation with pelvic ultrasound is recommended. Otherwise, recommend followup ultrasonography in 3-6 months. 2. Normal appendix. 3. Few scattered bilateral renal calculi without hydronephrosis. US/US pelvic and transvaginal IMPRESSION: 1. No evidence of ovarian torsion. 2. Large 5.7 right ovarian cyst. A follow-up exam in 3-6 months is recommended. External Record Review External record reviewed: Inpatient record, Office record and Outpatient record Prescription Management I considered prescription management with: Pain Medication Discharge Plan Discharge Clinical Impression: Cyst of right ovary Patient Disposition: Home, Self-Care Instructions: Ovarian Cyst (ED) Additional Instructions: You were evaluated in the emergency department today for abdominal pain which is likely related to an ovarian cyst. Your ultrasound did not show evidence of ovarian torsion. Please follow-up with your OBGYN this week. We recommend you take 650 mg Tylenol or 600 mg ibuprofen every 6 hours as needed for pain. If necessary, you can alternate these medications every 3 hours. For example, at noon take ibuprofen, then at 3:00 p.m. take Tylenol, then at 6:00 p.m. take ibuprofen, etc.. You can also apply warm compresses to your abdomen. Return to the emergency department if you develop worsening pain, persistent vomiting, fever 100.4F or greater, or any other concerning symptoms. Prescriptions: New ibuprofen 600 mg tablet 600 mg PO TID PRN (Reason: pain) Qty: 20 0RF No Action amoxicillin-pot clavulanate [Augmentin] 875-125 mg tablet 1 tab PO BID Qty: 14 0RF ondansetron 4 mg tablet,disintegrating 4 mg PO Q8H PRN (Reason: nausea and vomiting) Qty: 7 0RF prednisone 20 mg tablet 40 mg PO DAILY Qty: 10 0RF benzonatate [Tessalon Perles] 100 mg capsule 100 mg PO TID PRN (Reason: cough) Qty: 14 0RF levofloxacin 500 mg tablet 500 mg PO DAILY 7 Days Qty: 7 0RF phenazopyridine [Pyridium] 200 mg tablet 200 mg PO TID 2 Days Qty: 6 0RF ondansetron 4 mg tablet,disintegrating 4 mg PO Q6-8H PRN (Reason: nausea and vomiting) Qty: 7 0RF omeprazole 20 mg capsule,delayed release(DR/EC) 20 mg PO DAILY Qty: 30 0RF cyclobenzaprine 10 mg tablet 10 mg PO BEDTIME PRN (Reason: muscle spasm) Qty: 7 0RF lidocaine 5 % adhesive patch,medicated 1 patch topical DAILY PRN (Reason: pain) Qty: 15 0RF Rx Instructions: leave on most painful area for up to 12 hrs loperamide 2 mg capsule 2 mg PO Q6H PRN (Reason: loose stool) Qty: 14 0RF prednisone 20 mg tablet 20 mg PO BID Qty: 10 0RF albuterol sulfate 90 mcg/actuation HFA aerosol inhaler 1 inh inhalation QID PRN (Reason: shortness of breath or wheezing) Qty: 8.5 0RF amoxicillin-pot clavulanate [Augmentin] 875-125 mg tablet 1 tab PO BID Qty: 20 0RF ondansetron HCl 8 mg tablet 8 mg PO Q8H PRN (Reason: nausea and vomiting) Qty: 30 1RF oxycodone-acetaminophen [Percocet] 10-325 mg tablet 1 tab PO Q6H PRN (Reason: pain) Qty: 10 0RF
[2023-06-22 09:46] VITALS: BP 102/68; PULSE 65; RESP 18; TEMP 36.7; O2SAT 100
== END 2023-06-22 10:34 | disposition home or self-care (01) ==
PROVIDERS: Emergency Provider Emergency Medicine Emergency Medical Services
DX: N83.201 Unspecified ovarian cyst, right side (principal); R10.31 Right lower quadrant pain; R11.0 Nausea; Z79.899 Other long term (current) drug therapy
CPT/HCPCS: 36415; 74177; 76830; 76856; 80048; 80076; 81001; 81025; 83690; 85025; 93975; 96361; 96374; 96375; 99284; 99285; J1885; J2405; Q9967